=== PATIENT | female | born 1935 | race Caucasian/White ===

== ENCOUNTER → 2021-12-22 18:41 | Outpatient (CLI) | payer OTHER, MEDICARE, BC, SELFPAY ==
[2021-12-22 18:55] LABS: Microscopic, Urine URINE MICROSCOPIC (MICROSCOPIC)
[2021-12-22 19:02] LABS: Appearance,Urine CLEAR (Clear); Bilirubin,Urine Negative (Negative); Blood, Urine 2+ (Negative); Color,Urine YELLOW (Yellow); Glucose,Urine (UA) Negative (Negative); Ketones,Urine Negative (Negative); Leukocyte Esterase,Urine 2+ (Negative); Nitrate,Urine POSITIVE (Negative); Protein,Urine TRACE (Negative); Specific Gravity, Urine >= 1.030 (1.005-1.030); Urobilinogen,Urine 0.2 EU/dl (0.2)
[2021-12-22 19:22] LABS: WBC,Urine TNTC #/hpf (0-3)
[2021-12-22 19:23] LABS: Bacteria,Urine 2+ /lpf; RBC,Urine TNTC #/hpf (0-3)
== END ==
PROVIDERS: Visit Provider Family Medicine
DX: N39.0 Urinary tract infection, site not specified (principal); B96.89 Other specified bacterial agents as the cause of diseases classified elsewhere
CPT/HCPCS: 81001; 87086; 87088; 87186

== ENCOUNTER 2022-02-11 14:26 | Inpatient (IN) | payer OTHER, MEDICARE, BC, SELFPAY ==
[2022-02-11] VITALS (8 sets, daily range): BP systolic 100–122; BP diastolic 60–73; PULSE 70–74; RESP 16–20; TEMP 36.4–36.6; O2SAT 90–97; BMI 19.8; BMI 19.7
--- NOTE | 2022-02-11 14:44 | HMH.EDGENADL ---
ED Disposition Clinical Impression: Pelvic fracture Qualifiers: Encounter type: initial encounter Pelvic bone location: pubis Sublocation of pubis: superior rim Disposition: Admitted As Inpatient Condition on Discharge: Undetermined Referrals: Fransisco Diana [Primary Care Provider] - - Critical Care Critical Care Time: No Attestation: On 02/11/22, the high probability of a clinically significant, sudden or life threatening deterioration of the following system(s) required my full and direct attention, intervention and personal management. The time I documented below is in addition to time spent performing reported procedures but includes the following listed in this critical care notation. Medical Decision Making - Medical Records Medical records reviewed: Yes: I reviewed the patient's medical records. - Desmond Inquiry Pt receiving controlled substance: No Vital Signs: 02/11/22 14:31 02/11/22 15:00 02/11/22 16:00 Temperature 97.8 F Temperature Source Oral Pulse Rate 74 70 Pulse Rate [Right Brachial] 71 Respiratory Rate 18 18 20 Blood Pressure 118/64 122/60 Blood Pressure [Right Arm] 116/61 Blood Pressure Mean [Right Arm] 79 Blood Pressure Source [Right Arm] Automatic Cuff Blood Pressure Position [Right Arm] Sitting 02 Sat by Pulse Oximetry 96 97 97 Oxygen Delivery Method Room Air - Lab Data Lab results reviewed: Yes: I reviewed the patient's lab results. Lab Results 02/11/22 16:53: WBC 8.0, RBC 4.13 L, Hgb 11.9 L, Hct 36.5 L, MCV 88.3, MCH 28.8, MCHC 32.6, RDW 18.1 H, Plt Count 316, MPV 7.8, Neut % (Auto) 81.2 H, Lymph % (Auto) 11.9, [place] % (Auto) 5.6, Eos % (Auto) 0.5, Baso % (Auto) 0.7, Neut # (Auto) 6.5, Lymph # (Auto) 1.0, [place] # (Auto) 0.5, Eos # (Auto) 0.0, Baso # (Auto) 0.1 02/11/22 16:53: PT 10.9, INR 0.96 02/11/22 16:53: Sodium 140, Potassium 4.3, Chloride 108 H, Carbon Dioxide 29, Anion Gap 7.3, BUN 33 H, Creatinine 0.70, Estimated Creat Clear 38, Estimated GFR 80, Est GFR ( Amer) 96, Glucose 84, Calcium 8.5, Total Bilirubin 0.7, AST 34, ALT 30, Alkaline Phosphatase 278 H, Total Protein 6.3, Albumin 3.6, Globulin 2.7, Albumin/Globulin Ratio 1.3 Result diagrams: 02/11/22 16:53 02/11/22 16:53 Orders (Tests/Meds): ED MEDICATIONS Generic Name Dose Route Start Last Admin Trade Name Freq PRN Reason Stop Dose Admin Hydrocodone Bitart/Acetaminophen 1 tab 02/11/22 15:00 02/11/22 18:14 Hydrocodone 10mg/Apap 325mg Tab PO 03/13/22 14:59 1 tab Q4HP PRN Administration Moderate Pain ORDERS Category Date Time Status Covid-19 Nasal PCR ([facility]) Routine Lab 02/11/22 18:33 Ordered UA [Urinalysis and Microscopic] Stat Lab 02/11/22 18:45 Received EKG Request [ECG Request by /Marcia] Stat Y 02/11/22 14:58 Ordered Medical Decision Narrative: Patient is an 86-year-old female with a history of metastatic cancer presenting for chief complaint of right hip pain s/p fall from standing. Differential diagnosis includes, but is not limited to, fracture, dislocation, contusion. On initial exam, patient is hemodynamically stable nontoxic-appearing. She was evaluated with CBC, CMP, coags, CT head, CT C-spine, x-ray of the pelvis, right femur and right knee. Lab work is fairly unremarkable aside from mild anemia, likely baseline. Imaging shows lesions in the cervical spine but this is most likely secondary to metastatic disease. In the absence of acute tenderness on palpation, I have low suspicion for acute fracture. X-ray show mildly displaced fracture of the anterior and lateral superior pubic rami. Orthopedic physician on-call was consulted regarding possibility of operative intervention which patient does not require. Given that she lives alone in assisted living facility I do not believe she will be able to care for herself at home. She was admitted for pain control and PT/OT. General Adult HPI - General Chief complaint: Fall Stated complaint: R-hip pain
--- NOTE | 2022-02-11 14:58 | XR_ITS ---
FINAL REPORT CLINICAL HISTORY: fall, right hip pain FINDINGS: SINGLE VIEW PELVIS: A single view of the pelvis was obtained. There is of the mid left inferior pubic rami and lateral left superior pubic rami. Fracture fragments are mildly displaced. Vizualized joint spaces are normally aligned. Soft tissues are unremarkable. IMPRESSION: Acute, mildly displaced fractures of the left inferior and lateral superior pubic rami Reviewed, Interpreted and Dictated by Wade Perez MD Transcribed by Kary Hadley Authenticated by Wade Perez MD on 02/11/2022 04:41:15 PM [facility]
--- NOTE | 2022-02-11 14:59 | XR_ITS ---
FINAL REPORT CLINICAL HISTORY: right hip pain FINDINGS: AP and lateral views of the left femur were obtained. No acute fracture or dislocation. Femoral head has a normal smooth contour. Soft tissues are unremarkable. IMPRESSION: No acute bony abnormality of the left femur. Reviewed, Interpreted and Dictated by Wade Perez MD Transcribed by Kary Hadley Authenticated by Wade Perez MD on 02/11/2022 04:41:15 PM [facility]
--- NOTE | 2022-02-11 14:59 | XR_ITS ---
FINAL REPORT CLINICAL HISTORY: RLE pain/fall, right knee pain due to fall. FINDINGS: Three views of the right knee were obtained. There is an intramedullary nathan in the distal right femoral diaphysis. There is no acute fracture or dislocation. The joint spaces are intact. There is no soft tissue abnormality. IMPRESSION: No acute fracture of the right knee Reviewed, Interpreted and Dictated by Wade Perez MD Transcribed by Kary Hadley Authenticated by Wade Perez MD on 02/11/2022 04:41:15 PM [facility]
--- NOTE | 2022-02-11 14:59 | CT_ITS ---
FINAL REPORT TECHNIQUE: Axial images were performed through the brain.This study was performed with techniques to keep radiation doses as low as reasonably achievable, (ALARA). Individualized dose reduction techniques using automated exposure control or adjustment of mA and/or kV according to the patient''s size were employed. CLINICAL HISTORY: fall FINDINGS: There is mild atrophy. The ventricles are normal in size for the degree of atrophy. There is no extra-axial fluid or midline shift. There is no evidence of acute hemorrhage or mass. There is mild left maxillary mucosal thickening. Acute osseous abnormality is identified. IMPRESSION: Atrophy. No acute intracranial process. Reviewed, Interpreted and Dictated by Wade Perez MD Transcribed by Kary Hadley Authenticated by Wade Perez MD on 02/11/2022 04:17:18 PM [facility]
--- NOTE | 2022-02-11 14:59 | CT_ITS ---
FINAL REPORT TECHNIQUE: Axial images were obtained from skull base to the thoracic inlet by computed tomography. Coronal and sagittal reconstruction process performed. This study was performed with techniques to keep radiation doses as low as reasonably achievable (ALARA). Individualized dose reduction techniques using automated exposure control or adjustment of mA and/or kV according to the patient''s size were employed. CLINICAL HISTORY: pain FINDINGS: There is no acute fracture. Minimal spondylolisthesis is seen of C4 on C5 . There is moderate disc space narrowing at C5-6. There is a rounded lucency seen on the right of the C7 vertebral body measuring 1.7 cm in greatest dimension best seen on image 67 of series 3. There is a defect in the inferior endplate of C6 likely due to Schmorl's node seen on image 48 of series 1002. There is mild endplate hypertrophy at C5-6 with mild right and moderate left neural foraminal narrowing. IMPRESSION: No acute fracture. Rounded lucency in the right C7 vertebrae of uncertain significance. Recommend pre and post-contrast MRI to exclude mass. Hypertrophic changes of degenerative disc disease most evident on the left at C5-6 with minimal degenerative spondylolisthesis at C4-5. Reviewed, Interpreted and Dictated by Wade Perez MD Transcribed by Kary Hadley Authenticated by Wade Perez MD on 02/11/2022 04:17:19 PM [facility]
--- NOTE | 2022-02-11 16:03 | ECG_ITS ---
APPROVED REPORT Exam: Resting ECG HR:72 bpm ECG Measurements Heart Rate 72 AXES MD 201 P 83 QRSd 94 QRS -20 QT 387 T 40 QTc 411 Conclusion ELECTRONIC ATRIAL PACEMAKER ABNORMAL RHYTHM ECG UNCONFIRMED REPORT Electronically signed by : Dayton Palomares MD 02/14/2022 17:44:34
--- NOTE | 2022-02-11 16:24 | PC.NURSE ---
UPDATED PT ON POC. NO NEW NEEDS
--- NOTE | 2022-02-11 16:34 | PC.NURSE ---
DELGADO Mcdonough and DELGADO Yanez attempted to access pt powerport. Was able to flush port but had no blood return. Decision was made to de-access port at this time. ,life sciences teacher is going to attempt IV access.
[2022-02-11 17:05] LABS: Basophils # 0.1 K/mm3 (0-0.2); Basophils % 0.7 % (0.1-2.0); Eosinophils % 0.5 % (0.1-12.0); Hematocrit 36.5 % (37.0-47.0); Hemoglobin 11.9 g/dL (12.2-16.2); Lymphocytes % 11.9 % (10-50); Mean Corpuscular HGB Conc 32.6 g/dL (31.8-35.4); Mean Corpuscular Hemoglobin 28.8 pg (27.0-31.2); Mean Corpuscular Volume 88.3 fl (81-99); Mean Platelet Volume 7.8 fl (7.4-10.4); Monocytes # 0.5 K/mm3 (0.1-1.0); Monocytes % 5.6 % (1.7-9.3); Neutrophils # 6.5 K/mm3 (1.8-7.8); Neutrophils % 81.2 % (37.0-80.0); Platelet Count 316 K/mm3 (142-424); Red Blood Count 4.13 M/mm3 (4.20-5.40); Red Cell Distribution Width 18.1 % (11.5-17.5)
[2022-02-11 17:10] LABS: Chloride 108 mmol/L (98-107); Potassium 4.3 mmoL/L (3.5-5.1); Sodium 140 mmol/L (136-145)
[2022-02-11 17:12] LABS: Blood Urea Nitrogen 33 mg/dl (7-17); Creatinine Clearance Estimated 38 mL/min (50-200); Estimated Glomerular Filt Rate 80 ml/min (>60); GFR (African American) 96 ML/MIN (>60)
[2022-02-11 17:13] LABS: Alanine Aminotransferase 30 U/L (12-78); Albumin Level 3.6 g/dl (3.5-5.0); Albumin/Globulin Ratio 1.3 (1.1-1.8); Alkaline Phosphatase 278 U/L (38-126); Anion Gap 7.3 mEq/L (5-15); Aspartate Amino Transferase 34 U/L (14-36); Bilirubin,Total 0.7 mg/dl (0.2-1.3); Calcium 8.5 mg/dl (8.4-10.2); Carbon Dioxide 29 mmol/L (22.0-30.0); Globulin 2.7 g/dL (1.3-3.2); Glucose 84 mg/dl (74-100); Total Protein,Serum 6.3 g/dl (6.3-8.2)
[2022-02-11 17:14] LABS: INR 0.96 (0.9-1.1); Prothrombin Time 10.9 seconds (10.1-12.5)
--- NOTE | 2022-02-11 18:30 | PC.NURSE ---
Staff went by room and checked on patient and family member
[2022-02-11 19:00] LABS: Microscopic, Urine URINE MICROSCOPIC (MICROSCOPIC)
--- NOTE | 2022-02-11 19:09 | PC.NURSE ---
Ortho paged for ED doctor
--- NOTE | 2022-02-11 19:16 | PC.NURSE ---
Service doctor, Dr. Bradly fraga for ED doctor
[2022-02-11 19:17] LABS: Appearance,Urine CLEAR (Clear); Bilirubin,Urine Negative (Negative); Blood, Urine Negative (Negative); Color,Urine YELLOW (Yellow); Glucose,Urine (UA) Negative (Negative); Ketones,Urine Negative (Negative); Leukocyte Esterase,Urine Negative (Negative); Nitrate,Urine Negative (Negative); Protein,Urine Negative (Negative); Specific Gravity, Urine 1.025 (1.005-1.030); Urobilinogen,Urine 0.2 EU/dl (0.2)
[2022-02-11 19:32] LABS: Coronavirus 19, PCR Not Detected (NotDetected); Influenza A, PCR Not Detected (NotDetected); Influenza B, PCR Not Detected (NotDetected)
[2022-02-11 20:02] LABS: Bacteria,Urine Trace /lpf; RBC,Urine Occasional #/hpf (0-3); Squamous Epithelial Cell,Urine Occasional #/hpf (0-5)
--- NOTE | 2022-02-11 20:59 | PC.NURSE ---
patient up to floor via stretcher @ this time.
[2022-02-12 04:00] VITALS: BP 126/66; PULSE 66; RESP 17; TEMP 36.6; O2SAT 98
--- NOTE | 2022-02-12 07:19 | HMH.PHAVTE ---
[facility] Pharmacy VTE Monitoring - Patient Demographics Admission date: 02/12/22 Report Date: 02/12/22 Time: 07:20 Allergies/Adverse Reactions: Patient Allergies Sulfa (Sulfonamide Antibiotics) [SULFA (SULFONAMIDE ANTIBIOTICS)] Allergy (Intermediate, Verified 11/06/18 18:16) erythromycin base Allergy (Verified 11/06/18 18:16) Height: 1.73 m Weight: 58.967 kg Patient Problems: Current Active Problems Pelvic fracture (Acute) - VTE Risk Labs: VTE Related Lab Results Hgb 11.9 g/dL (12.2-16.2) L 02/11/22 16:53 Hct 36.5 % (37.0-47.0) L 02/11/22 16:53 Plt Count 316 K/mm3 (142-424) 02/11/22 16:53 PT 10.9 seconds (10.1-12.5) 02/11/22 16:53 INR 0.96 (0.9-1.1) 02/11/22 16:53 BUN 33 mg/dl (7-17) H 02/11/22 16:53 Creatinine 0.70 mg/dl (0.52-1.04) 02/11/22 16:53 Estimated Creat Clear 38 mL/min (50-200) 02/11/22 16:53 Clinical Trial Participant: No - Prophylaxis VTE Prophylaxis Ordered?: Yes Types of VTE Prophylaxis: TEDS Knee High
[2022-02-12 08:00] VITALS: BP 105/60; PULSE 73; RESP 17; TEMP 36.8; O2SAT 94
--- NOTE | 2022-02-12 09:22 | HMH.PHAINT ---
Home medication list has been verified using the patient's MAR from the facility she was staying at.
--- NOTE | 2022-02-12 09:24 | SW/DCPLANNER ---
Addendum entered by [facility] 02/13/22 12:37: Mariella has stated that [facility] will be here at 2PM to transport this patient. Addendum entered by [facility] 02/13/22 09:20: Per Mariella this patient is good to return to [facility] unit today. Dr Cabrales has stated that patient is medically stable for discharge today. Per Mariella patient will not require an additional COVID swab prior to returning. Addendum entered by [facility] 02/12/22 14:44: Updated patient information has been faxed to Rosalia rockwell/ [facility] and Mariella rockwell/ [facility]: patient should be a candidate to return to [facility] at [facility]/ Hospice care and outpatient therapy. I will continue to follow up with Sol. Original Note: This patient currently resides at [facility] () and is under Hospice Care. Ruddy rockwell/ [facility] Jer[facility] Aguayo has stated this is a related stay. I will continue to follow up with MD nettie, [facility] and [facility] during patient's stay.
--- NOTE | 2022-02-12 09:37 | HMH.HP ---
*Admission Date: 02/12/22 <JaneLana - 02/12/22 10:01> *Chief complaint: Fall with fracture of pelvis <Lana Lara 02/12/22 10:01> *History of present illness: Ms. Ramon is an 86-year-old female resident of assisted living at [facility] with a history of metastatic breast cancer, pacemaker for bradycardia tach syndrome, osteoarthritis, hypertension, GERD, wound of right lower extremity, depression, and is currently under the assistance of hospice care who when walking around her bed tripped and fell landing on her buttocks. She states she did hit her head on some object but has no head discomfort. With evaluation in the emergency room x-ray of the pelvis showed an acute mildly displaced fracture of the left inferior and lateral superior pubic Rami. CT of the spine showed no acute fracture. Left femur x-ray revealed no acute bony abnormalities. CT of the head revealed no acute intracranial process. Knee x-rays were also negative for fracture. She was given hydrocodone APAP in the emergency room. She was admitted for pain control and PT OT evaluation. This a.m. patient states she is comfortable. She is sitting up in the bed eating her breakfast. She states she did sleep some last night. <Lana Lara 02/12/22 10:01> [facility] History Medical History: Reports:: Cancer (breast), Depression, Gastroesophageal Reflux Disease(GERD), Hypertension, Internal Pacemaker Denies:: Diabetes Mellitus Type 1, Diabetes Mellitus Type 2, MRSA <Lana Lara 02/12/22 10:01> *Have you ever received a pneumonia vaccine?: Yes <Lana Lara 02/12/22 10:01> *Have you received a flu vaccine this season?: Yes <Lana Lara 02/12/22 10:01> Laterality Cases: Left: Mastectomy, Bilateral: Cataract <Lana Lara 02/12/22 10:01> Other Surgeries: Yes: Pacemaker <Lana Lara 02/12/22 10:01> Amputation: No <Lana Lara 02/12/22 10:01> Fractures: Yes <Lana Lara 02/12/22 10:01> - *Social History Last grade of school completed: High school graduate <Lana Lara 02/12/22 10:01> Smoking Status: Unknown if ever smoked <Lana Lara 02/12/22 10:01> Alcohol Intake: never <LaraLana 02/12/22 10:01> *Occupational Status:: retired <LaraLana 02/12/22 10:01> Housing: custodial <LaraLana 02/12/22 10:01> Household Members: other <LaraLana 02/12/22 10:01> *Travel in the last 8 weeks: None <LaraLana 02/12/22 10:01> Family Hx:: No significant family history <LaraLana 02/12/22 10:01> Review of Systems - Constitutional Denies fever(s) <LaraLana 02/12/22 10:01> - Eyes Denies change in vision <LaraLana 02/12/22 10:01> - ENT Denies dizziness, Denies ear pain, Denies sore throat <JaneLana 02/12/22 10:01> - *Cardiovascular Reports shortness of breath, Denies chest pain <LaraLana 02/12/22 10:01> - *Respiratory Reports shortness of breath, Denies chest congestion, Denies cough <LaraLana 02/12/22 10:01> - *Gastrointestinal Reports constipation, Denies abdominal pain, Denies loose stools, Denies nausea, Denies vomiting <LaraLana 02/12/22 10:01> - *Genitourinary Denies difficulty urinating <Lara,Lana 02/12/22 10:01> - *Musculoskeletal Reports muscle weakness, Denies joint pain <LaraLana 02/12/22 10:01> - *Neurologic Reports abnormal walking (Unsteady on her feet and usually uses a walker with assistance), Denies confusion, Denies dizziness, Denies localized weakness, Denies headache(s), Denies tingling/numbness/burning sensations, Denies fainting <JaneLana 02/12/22 10:01> Meds Home Medications Medication Instructions Recorded Confirmed Type Bisacodyl [Bisacodyl 10mg Supp] 10 mg RC DAILYP PRN 02/11/22 02/11/22 History Citalopram Hydrobromide 10 mg PO DAILY 02/11/22 02/11/22 History [Citalopram 10mg Tablet] Furosemide [Lasix 20mg tab] 20 mg PO DAILY 02/11/22 02/11/22 History Gabapen
--- NOTE | 2022-02-12 14:18 | HMH.PTEV ---
Physical Therapy Evaluation Rehab PT IP Evaluation Start: 02/12/22 11:42 Freq: .once Status: Active Protocol: Document 02/12/22 13:30 IFRAH (Rec: 02/12/22 14:18 IFRAH [id number]) Subjective/History History History 86 y/o femal admitted to [facility] from SNF assisted living side. Pt was using RW as assistive device in ns home, and was receiving hospice care. Subjective Subjective Pt has c/o pain in B lower legs R>L due to edema and cellulitis, open blisters on RLE Rehab PT IP Eval Objective Appearance Patient Behavior Appropriate,Cooperative Patient Orientation Place,Name,Birthday,Year Difficulty following instructions none Speech Pattern Appropriate Ambulation Patient Able to Ambulate Yes Ambulation Observation IP General Gait Pattern Observation Shuffling Step,Decrease Stride Lngth (R),Decrease Stride Lngth (L) Ambulation Distance (feet) 30 Ambulation Assistive Device Rolling Walker Ambulation Ability Contact Guard/Hand Hold Balance Ability to Arise Able, uses arms to help Sitting Balance Steady, safe Standing Balance Steady, wide stance Dynamic Sitting Balance Ability Good Dynamic Standing Balance Ability Fair Transfers Bed Transfer Ability Supervision/Stand by Chair Transfer Ability Supervision/Stand by Sit to Stand Bed Transfer Ability Contact Guard/Hand Hold Sit to Stand Chair Transfer Ability Contact Guard/Hand Hold ROM LLE PT ROM Status ABN Abnormal ROM Comment limited in hip flex RLE PT ROM Status ABN Abnormal ROM Comment limited in hip flex Rehab PT IP prob,goals,plan Problems Date of Evaluation: 02/12/22 PT IP Problems Transfers,Gait,Self care, Safety Rehab Potential Rehab Potential Good Equipment Needs Assistive Devices Rolling / Wheeled Walker Plan PT Intervention Plan Gait,Balance,Self care,Safety, Therapeutic Exercise PT Plan Frequency BID Duration LOS Discharge Goals Bed Transfer Ability Supervision/Stand by Sit to Stand Chair Transfer Ability Supervision/Stand by,Contact Guard/Hand Hold Ambulation Assistive Device Rolling Walker Ambulation Distance (feet) 30 Discharge Plan PT Discharge Plan Pt will benefit from skilled
--- NOTE | 2022-02-12 14:54 | HMH.OTEV ---
OT Inpatient Evaluation Rehab OT IP Evaluation Start: 02/12/22 11:43 Freq: ONCE Status: Complete Protocol: Document 02/12/22 14:47 [facility] (Rec: 02/12/22 14:53 [facility] [id number]) Rehab OT IP Assessment Subjective History Pt was oriented x 3 on arrival . Pt agreeable to engage in therapy session. Pt was admitted via ED on 02/11/22 due to a fall and Pelvic FX. Prior to being in the hosptial , pt lived at [facility] living area. Pt claims she was independent with dressing, feeding, and bathing. Pt was dependent upon employees for completion of IADLs. Pt did use a rolling walker for wheelchair when needed. The following information was copied from history and physical report: Ms. Ramon is an 86-year-old female resident of assisted living at [place] with a history of metastatic breast cancer, pacemaker for bradycardia tach syndrome, osteoarthritis, hypertension, GERD, wound of right lower extremity, depression, and is currently under the assistance of hospice care who when walking around her bed tripped and fell landing on her buttocks. She states she did hit her head on some object but has no head discomfort. With evaluation in the emergency room x-ray of the pelvis showed an acute mildly displaced fracture of the left inferior and lateral superior pubic Rami. CT of the spine showed no acute fracture. Left femur x-ray revealed no acute bony abnormalities. CT of the head revealed no acute intracranial process. Knee x- rays were also negative for fracture. She was given
[2022-02-12 16:00] VITALS: BP 136/64; PULSE 78; RESP 19; TEMP 36.9; O2SAT 96
[2022-02-12 20:00] VITALS: BP 104/62; PULSE 71; RESP 18; TEMP 36.4; O2SAT 93
[2022-02-13 04:00] VITALS: BP 119/64; PULSE 73; RESP 16; TEMP 36.6; O2SAT 90
[2022-02-13 06:16] VITALS: BMI 19.7
[2022-02-13 08:00] VITALS: BP 112/54; PULSE 73; RESP 18; TEMP 36.4; O2SAT 94
--- NOTE | 2022-02-13 08:29 | HMH.ACPN2 ---
<Lana Lara - Last Filed: 02/14/22 06:25> Internal Medicine - PN: Subj *Date: 02/14/22 *Time: 06:25 Interval history: Patient states she did sleep some last night. She is eating without problems. She has been up with physical therapy and feels she did well. Please see physical therapy note. Exam Vital signs and Labs for Last 24 Hours: Temp Pulse Resp BP Pulse Ox 97.9 F 73 16 119/64 90 L 02/13/22 04:00 02/13/22 04:00 02/13/22 04:00 02/13/22 04:00 02/13/22 04:00 I & O for Last 24 hours: Intake & Output 02/10/22 02/11/22 02/12/22 02/13/22 11:59 11:59 11:59 11:59 Intake Total 240 / 240 Output Total 0 / 0 Balance 0 / 0 240 / 240 Weight 130 lb 130 lb - Constitutional no acute distress Comments: Sitting up in the bed completing her breakfast. She appears comfortable. - *Routine Respiratory Exam Present: diminished air movement (Posteriorly) - *Routine Cardiovascular Exam Present: RRR - *Routine Abdominal Exam Present: soft, normoactive bowel sounds. Absent: tenderness - *Routine Extremities Exam Present: edema Comments: Right leg reveals erythema from the knee down with tenderness to the whole lower leg and right heel. There are a few discolored areas over the outer lateral lower leg. There has been some drainage. - *Routine Neurological Exam Present: alert, oriented X3 Assessment and Plan (1) Pelvic fracture Status: Acute Qualifiers: Encounter type: initial encounter Pelvic bone location: pubis Sublocation of pubis: superior rim Category: Medical Code(s): S32.9XXA - Fracture of unspecified parts of lumbosacral spine and pelvis, initial encounter for closed fracture (2) Metastatic breast cancer Status: Acute Category: Medical Code(s): C50.919 - Malignant neoplasm of unspecified site of unspecified female breast (3) Depression Status: Acute Category: Medical Code(s): F32.A - Depression, unspecified (4) Hypertension Status: Acute Category: Medical Code(s): I10 - Essential (primary) hypertension (5) Cancer associated pain Status: Acute Category: Medical Code(s): G89.3 - Neoplasm related pain (acute) (chronic) (6) GERD (gastroesophageal reflux disease) Status: Acute Category: Medical Code(s): K21.9 - Gastro-esophageal reflux disease without esophagitis (7) Wound of right lower extremity Status: Acute Category: Medical Code(s): S81.801A - Unspecified open wound, right lower leg, initial encounter - Assessment and plan all Dx Assessment and Plan for all problems:: Will to restart antibiotic. Apparently wound care physician did telehealth with pictures at [place] and started her on Augmentin. <Julio Cabrales - Last Filed: 02/19/22 08:51> Internal Medicine - PN: Subj *Date: 02/19/22 *Time: 08:51 Exam Vital signs and Labs for Last 24 Hours: Temp Pulse Resp BP Pulse Ox 97.5 F L 73 18 112/54 L 94 L 02/13/22 08:00 02/13/22 08:00 02/13/22 08:00 02/13/22 08:00 02/13/22 08:00 Assessment and Plan (1) Pelvic fracture Status: Acute Qualifiers: Encounter type: initial encounter Pelvic bone location: pubis Sublocation of pubis: superior rim Category: Medical Code(s): S32.9XXA - Fracture of unspecified parts of lumbosacral spine and pelvis, initial encounter for closed fracture (2) Metastatic breast cancer Status: Acute Category: Medical Code(s): C50.919 - Malignant neoplasm of unspecified site of unspecified female breast (3) Depression Status: Acute Category: Medical Code(s): F32.A - Depression, unspecified (4) Hypertension Status: Acute Category: Medical Code(s): I10 - Essential (primary) hypertension (5) Cancer associated pain Status: Acute Category: Medical Code(s): G89.3 - Neoplasm related pain (acute) (chronic) (6) GERD (gastroesophageal reflux disease) Status: Acute Category: Medical Code(s): K21.9 - Gastr
--- NOTE | 2022-02-13 09:32 | HMH.DCSUM ---
General - General Admission date:: 02/11/22 <Julio Cabrales - 02/13/22 12:54> 02/11/22 <Lana Lara - 02/13/22 09:42> Discharge date: 02/13/22 <Lana Lara - 02/13/22 09:42> HPI HPI: Ms. Ramon is an 86-year-old female resident of assisted living at [facility] with a history of metastatic breast cancer, pacemaker for bradycardia tach syndrome, osteoarthritis, hypertension, GERD, wound of right lower extremity, depression, and currently under the assistance of hospice care who when walking around her bed tripped and fell landing on her buttocks. She stated she did hit her head on some object but has no head discomfort. With evaluation in the emergency room x-ray of the pelvis showed an acute mildly displaced fracture of the left inferior and lateral superior pubic Rami. CT of the spine showed no acute fracture. Left femur x-ray revealed no acute bony abnormalities. CT of the head revealed no acute intracranial process. Knee x-rays were also negative for fracture. She was given hydrocodone APAP in the emergency room. She was admitted for pain control and PT OT evaluation. The following a.m. patient stated she was comfortable. She was sitting up in the bed eating her breakfast. She stated she slept some during the night. <Lana Lara - 02/13/22 09:42> Hospital Course Hospital Course: Pain was controlled after admission. She was seen by physical therapy and Occupational Therapy who felt she needed additional rehab in order to be safe with ambulation. She states she was able to walk around the bed with a walker with assistance. She continues with a wound on the right lower leg. She will need to be restarted back on her Augmentin which was prescribed by the wound care physician prior to her fall. She will need to have daily dressing changes on the right lower extremity as well as protection of the heel. She will continue with hospice services at [facility]. On 02/23/2022 patient states she is doing well. She is eating well. She is ready for discharge back to [facility]. She will continue with meds as per medication reconciliation sheet. She will need PT and OT for rehab. To continue with dressing changes daily on the right lower extremity. Also to continue with her pain management. <Lana Lara - 02/13/22 09:42> Objective Vital signs: Temp Pulse Resp BP Pulse Ox 97.5 F L 73 18 112/54 L 94 L 02/13/22 08:00 02/13/22 08:00 02/13/22 08:00 02/13/22 08:00 02/13/22 08:00 <Julio Cabrales - 02/13/22 12:54> Temp Pulse Resp BP Pulse Ox 97.5 F L 73 18 112/54 L 94 L 02/13/22 08:00 02/13/22 08:00 02/13/22 08:00 02/13/22 08:00 02/13/22 08:00 <Lana Lara - 02/13/22 09:42> Narrative: Exam Vital signs and Labs for Last 24 Hours: Temp Pulse Resp BP Pulse Ox 97.9 F 73 16 119/64 90 L 02/13/22 04:00 02/13/22 04:00 02/13/22 04:00 02/13/22 04:00 02/13/22 04:00 I & O for Last 24 hours: Intake & Output 02/10/22 02/11/22 02/12/22 02/13/22 11:59 11:59 11:59 11:59 Intake Total 240 / 240 Output Total 0 / 0 Balance 0 / 0 240 / 240 Weight 130 lb 130 lb - Constitutional no acute distress Comments: Sitting up in the bed completing her breakfast. She appears comfortable. - *Routine Respiratory Exam Present: diminished air movement (Posteriorly) - *Routine Cardiovascular Exam Present: RRR - *Routine Abdominal Exam Present: soft, normoactive bowel sounds. Absent: tenderness - *Routine Extremities Exam Present: edema Comments: Right leg reveals erythema from the knee down with tenderness to the whole lower leg and right heel. There are a few discolored areas over the outer lateral lower leg. There has been some drainage. - *Routine Neurological Exam Present: alert, oriented X3 <Lana Lara - 02/13/22 09:42> Results Completed studies during hospitalization [Text1]: 02/11/22 16:53: WB
--- NOTE | 2022-02-13 12:33 | PC.NURSE ---
Ranjeet segura contacted, report given to Ankita.
--- NOTE | 2022-02-13 12:43 | PC.WOUNDNOTE ---
present on admission, no changes since admission
[2022-02-13 13:35] VITALS: BMI 19.3
--- NOTE | 2022-02-14 14:18 | CARE MANAGER ---
Contacted patient's nurse, Ankita. States patient is doing very well and getting around well. Deny any questions or concerns. DELGADO Campos
== END 2022-02-13 14:50 | DRG 536 ==
LOC: ER 19:21 → 2ND 19:40
PROVIDERS: Admitting Provider Family Medicine; Emergency Provider Emergency Medicine; PCP Pediatrics; Visit Provider Family Medicine
DX: S32.511A Fracture of superior rim of right pubis, initial encounter for closed fracture (principal); C79.9 Secondary malignant neoplasm of unspecified site; C50.919 Malignant neoplasm of unspecified site of unspecified female breast; F32.A Depression, unspecified; I10 Essential (primary) hypertension; K21.9 Gastro-esophageal reflux disease without esophagitis; G89.3 Neoplasm related pain (acute) (chronic); Z95.0 Presence of cardiac pacemaker; M19.90 Unspecified osteoarthritis, unspecified site; Z51.5 Encounter for palliative care; W01.0XXA Fall on same level from slipping, tripping and stumbling without subsequent striking against object, initial encounter; Z20.822 Contact with and (suspected) exposure to COVID-19
CPT/HCPCS: 70450; 72125; 72170; 73552; 73562; 80053; 81001; 85025; 85610; 93005; 97162; 97166; 97530; 99285; C9803; J1642; U0003; U0005

== ENCOUNTER 2022-02-22 22:44 | Observation (INO) | payer OTHER, MEDICARE, BC, SELFPAY ==
[2022-02-22 22:45] VITALS: BP 126/77; PULSE 76; RESP 17; TEMP 36.8; O2SAT 98; BMI 23.9
[2022-02-22 23:02] LABS: Microscopic, Urine URINE MICROSCOPIC (MICROSCOPIC)
[2022-02-22 23:04] LABS: Appearance,Urine CLEAR (Clear); Bilirubin,Urine Negative (Negative); Blood, Urine Negative (Negative); Color,Urine YELLOW (Yellow); Glucose,Urine (UA) Negative (Negative); Ketones,Urine Negative (Negative); Leukocyte Esterase,Urine Negative (Negative); Nitrate,Urine Negative (Negative); PH,Urine 5.5 (5.0-8.5); Protein,Urine Negative (Negative); Specific Gravity, Urine 1.025 (1.005-1.030); Urobilinogen,Urine 0.2 EU/dl (0.2)
[2022-02-22 23:16] LABS: Basophils # 0.1 K/mm3 (0-0.2); Basophils % 0.8 % (0.1-2.0); Eosinophils % 0.2 % (0.1-12.0); Hematocrit 34.7 % (37.0-47.0); Hemoglobin 11.3 g/dL (12.2-16.2); Lymphocytes # 1.1 K/mm3 (0.7-4.5); Lymphocytes % 11.9 % (10-50); Mean Corpuscular HGB Conc 32.6 g/dL (31.8-35.4); Mean Corpuscular Hemoglobin 28.5 pg (27.0-31.2); Mean Corpuscular Volume 87.4 fl (81-99); Mean Platelet Volume 8.7 fl (7.4-10.4); Monocytes # 0.4 K/mm3 (0.1-1.0); Monocytes % 4.3 % (1.7-9.3); Neutrophils # 7.7 K/mm3 (1.8-7.8); Neutrophils % 82.8 % (37.0-80.0); Platelet Count 279 K/mm3 (142-424); Red Blood Count 3.96 M/mm3 (4.20-5.40); Red Cell Distribution Width 18.3 % (11.5-17.5); White Blood Count 9.3 K/mm3 (4.8-10.8)
[2022-02-22 23:26] LABS: Alanine Aminotransferase 30 U/L (12-78); Albumin Level 3.6 g/dl (3.5-5.0); Albumin/Globulin Ratio 1.4 (1.1-1.8); Alkaline Phosphatase 236 U/L (38-126); Anion Gap 10.9 mEq/L (5-15); Aspartate Amino Transferase 32 U/L (14-36); Bilirubin,Total 0.6 mg/dl (0.2-1.3); Blood Urea Nitrogen 44 mg/dl (7-17); Calcium 8.7 mg/dl (8.4-10.2); Carbon Dioxide 25 mmol/L (22.0-30.0); Chloride 107 mmol/L (98-107); Creatinine Clearance Estimated 40 mL/min (50-200); Estimated Glomerular Filt Rate 95 ml/min (>60); GFR (African American) 115 ML/MIN (>60); Globulin 2.5 g/dL (1.3-3.2); Glucose 114 mg/dl (74-100); Potassium 3.9 mmoL/L (3.5-5.1); Sodium 139 mmol/L (136-145); Total Protein,Serum 6.1 g/dl (6.3-8.2)
[2022-02-22 23:31] LABS: C-Reactive Protein 31.7 mg/L (0-4)
[2022-02-22 23:41] LABS: Erythrocyte Sedimentation Rate 32 mm/hr (0-30)
[2022-02-22 23:45] LABS: Procalcitonin 0.075 ng/mL (0.0-2.0)
--- NOTE | 2022-02-22 23:49 | HMH.EDAMS ---
ED Disposition Clinical Impression: Acute delirium Disposition: Admitted as Observation Condition on Discharge: Good - Critical Care Critical Care Time: No Attestation: On 02/22/22, the high probability of a clinically significant, sudden or life threatening deterioration of the following system(s) required my full and direct attention, intervention and personal management. The time I documented below is in addition to time spent performing reported procedures but includes the following listed in this critical care notation. Medical Decision Making - Medical Records Medical records reviewed: Yes: I reviewed the patient's medical records. - Desmond Inquiry Pt receiving controlled substance: No Vital Signs: 02/22/22 22:45 02/23/22 00:00 02/23/22 01:17 Temperature 98.3 F 98.3 F Temperature Source Oral Pulse Rate 76 72 Pulse Rate [Left Radial] 76 Respiratory Rate 17 16 17 Blood Pressure 118/62 111/62 Blood Pressure [Right Arm] 126/77 Blood Pressure Mean 80 87 Blood Pressure Mean [Right Arm] 93 Blood Pressure Source Automatic Cuff Automatic Cuff Blood Pressure Source [Right Arm] Automatic Cuff Blood Pressure Position Right Lateral Blood Pressure Position [Right Arm] Sitting 02 Sat by Pulse Oximetry 98 Oxygen Delivery Method Room Air - Lab Data Lab results reviewed: Yes: I reviewed the patient's lab results. Lab Results 02/22/22 22:58: Urine Color Yellow, Urine Appearance Clear, Urine pH 5.5, Ur Specific [place] 1.025, Urine Protein Negative, Urine Glucose (UA) Negative, Urine Ketones Negative, Urine Blood Negative, Urine Nitrate Negative, Urine Bilirubin Negative, Urine Urobilinogen 0.2, Ur Leukocyte Esterase Negative, Urine WBC 10-20, Ur Squamous Epith Cells 3-5 02/22/22 23:04: C-Reactive Protein 31.7 H 02/22/22 23:04: WBC 9.3, RBC 3.96 L, Hgb 11.3 L, Hct 34.7 L, MCV 87.4, MCH 28.5, MCHC 32.6, RDW 18.3 H, Plt Count 279, MPV 8.7, Neut % (Auto) 82.8 H, Lymph % (Auto) 11.9, [place] % (Auto) 4.3, Eos % (Auto) 0.2, Baso % (Auto) 0.8, Neut # (Auto) 7.7, Lymph # (Auto) 1.1, [place] # (Auto) 0.4, Eos # (Auto) 0.0, Baso # (Auto) 0.1, ESR 32 H 02/22/22 23:04: Sodium 139, Potassium 3.9, Chloride 107, Carbon Dioxide 25, Anion Gap 10.9, BUN 44 H, Creatinine 0.60, Estimated Creat Clear 40, Estimated GFR 95, Est GFR ( Amer) 115, Glucose 114 H, Calcium 8.7, Total Bilirubin 0.6, AST 32, ALT 30, Alkaline Phosphatase 236 H, Total Protein 6.1 L, Albumin 3.6, Globulin 2.5, Albumin/Globulin Ratio 1.4, Procalcitonin 0.075 02/22/22 23:04: Troponin I < 0.01 02/23/22 00:22: Lactate 1.5 Result diagrams: 02/22/22 23:04 02/22/22 23:04 Orders (Tests/Meds): ORDERS Category Date Time Status Ammonia Stat Lab 02/23/22 00:22 Received Troponin I Q3H Lab 02/23/22 03:15 Ordered Troponin I Q3H Lab 02/23/22 06:15 Ordered Blood Culture Stat Micro 02/23/22 00:22 Received Urine Culture Stat Micro 02/22/22 22:58 Received - CT Data CT Scan: Head Time Received: 01:[address] Reviewed: Yes: I have viewed the radiologist's interpretation Preliminary Findings: Abnormal (see report ) - Physician Consults Physician Consulted: lopez Reason -: Admission Medical Decision Narrative: pt with confusion at [facility] w/o acute trauma or fever - hx of breast cancer and on pain meds at this time Altered Mental Status HPI - General Chief Complaint: Altered Mental Status Stated Complaint: AMS Time Seen by Provider: 02/22/22 23:49 Mode of Arrival: EMS Source of Information: Patient, Relative, EMS, Medical Record Limitations: No Limitations Description of Symptoms (Recalled from ER Triage Doc. by RN): SENT FROM ASSISTED FOR BEING COMBATIVE. PT WITH HX OF METASTATIC BREAST CANCER. - History of Present Illness HPI narrative: pt sent from [facility] with hx of confusion and was combative with staff at [facility] - has hx of breast cancer and has recent fall - no trauma - but had fall about 10 days ago - has pain meds and seen roberto
[2022-02-23] VITALS (11 sets, daily range): BP systolic 94–138; BP diastolic 49–73; PULSE 70–87; RESP 15–17; TEMP 36.6–36.8; O2SAT 90–96; BMI 21.7
--- NOTE | 2022-02-23 00:07 | PC.NURSE ---
Dr. Seaman speaking to Dr. Cabrales at this time
--- NOTE | 2022-02-23 00:10 | PC.NURSE ---
radha on phone Dr marroquin @ this time
--- NOTE | 2022-02-23 00:14 | CT_ITS ---
PROCEDURE INFORMATION: Exam: CT Head Without Contrast Exam date and time: 02/23/2022 12:25 AM Age: 86 years old Clinical indication: Altered mental status/memory loss; Confusion or disorientation; Additional info: AMS TECHNIQUE: Imaging protocol: Computed tomography of the head without contrast. Radiation optimization: All CT scans at this facility use at least one of these dose optimization techniques: automated exposure control; mA and/or kV adjustment per patient size (includes targeted exams where dose is matched to clinical indication); or iterative reconstruction. COMPARISON: CT HEAD/BRAIN WO CON 02/11/2022 3:11 PM FINDINGS: Brain: Moderate atrophy. No intracranial hemorrhage. No mass. Few scattered foci of decreased attenuation within periventricular/subcortical white matter. No definite edema. Cerebral ventricles: No hydrocephalus. Paranasal sinuses: No acute sinusitis. Mastoid air cells: No significant effusion. Orbital cavities: Unremarkable as visualized. Bones/joints: No acute fracture. Soft tissues: Unremarkable. IMPRESSION: Probable chronic microvascular ischemic changes. If symptoms persist, consider MRI.
[2022-02-23 00:47] LABS: Lactic Acid 1.5 mmol/L (0.7-2.1)
[2022-02-23 01:01] LABS: Troponin I < 0.01 ng/ml (0.00-0.034)
--- NOTE | 2022-02-23 01:14 | PC.NURSE ---
pt sleeping at this time
--- NOTE | 2022-02-23 01:24 | PC.NURSE ---
PT REPOSITIONED FOR COMFORT AND LIGHTS DIMMED PER PATIENT REQUEST. ADDITIONAL BLANKETS PROVIDED.
--- NOTE | 2022-02-23 01:34 | PC.NURSE ---
Pt moved to hospital bed, bed alarm on, and call light within reach.
[2022-02-23 02:02] LABS: Ammonia < 9 umol/L (9-30)
--- NOTE | 2022-02-23 02:37 | PC.NURSE ---
pt beatriz boarding in er. pt transferred to regular hospital bed. bed alarm activated and call light within reach
--- NOTE | 2022-02-23 03:30 | PC.NURSE ---
pt resting quietly. bed alarm activated call light within reach
--- NOTE | 2022-02-23 04:38 | PC.NURSE ---
AM labs and vital signs obtained @ this time. pt voiced no c/o bed alarm activated, call light within reach
[2022-02-23 04:45] LABS: Basophils % 0.6 % (0.1-2.0); Eosinophils % 0.5 % (0.1-12.0); Hematocrit 30.5 % (37.0-47.0); Lymphocytes % 13.5 % (10-50); Mean Corpuscular HGB Conc 32.6 g/dL (31.8-35.4); Mean Corpuscular Hemoglobin 28.7 pg (27.0-31.2); Monocytes # 0.3 K/mm3 (0.1-1.0); Monocytes % 3.9 % (1.7-9.3); Neutrophils # 6.2 K/mm3 (1.8-7.8); Neutrophils % 81.5 % (37.0-80.0); Platelet Count 239 K/mm3 (142-424); Red Blood Count 3.46 M/mm3 (4.20-5.40); Red Cell Distribution Width 18.4 % (11.5-17.5); White Blood Count 7.6 K/mm3 (4.8-10.8)
[2022-02-23 04:57] LABS: Anion Gap 9.5 mEq/L (5-15); Blood Urea Nitrogen 37 mg/dl (7-17); Calcium 8.4 mg/dl (8.4-10.2); Carbon Dioxide 25 mmol/L (22.0-30.0); Chloride 107 mmol/L (98-107); Creatinine Clearance Estimated 40 mL/min (50-200); Estimated Glomerular Filt Rate 117 ml/min (>60); GFR (African American) 142 ML/MIN (>60); Magnesium 2.1 mg/dl (1.6-2.3); Potassium 3.5 mmoL/L (3.5-5.1); Sodium 138 mmol/L (136-145)
[2022-02-23 05:08] LABS: Glucose 193 mg/dl (74-100)
--- NOTE | 2022-02-23 05:47 | PC.NURSE ---
Pt brief changed and repositioned for comfort. Bed alarm on and call light within reach.
[2022-02-23 05:56] LABS: Coronavirus 19, PCR Not Detected (NotDetected); Influenza A, PCR Not Detected (NotDetected); Influenza B, PCR Not Detected (NotDetected)
--- NOTE | 2022-02-23 08:30 | PC.NURSE ---
PT CONFUSED YELLING AT STAFF. ATTEMPTING TO CLIMB OUT OF BED.
--- NOTE | 2022-02-23 08:35 | PC.NURSE ---
SITTER AT BEDSIDE
--- NOTE | 2022-02-23 10:20 | PC.NURSE ---
1017 detailed report given to tejinder lundberg rn.
--- NOTE | 2022-02-23 10:40 | PC.NURSE ---
Pt arrived to the floor at this time
--- NOTE | 2022-02-23 14:08 | HMH.HP ---
*Admission Date: 02/23/22 *Chief complaint: confusion *History of present illness: Ms. Ramon is an 86-year-old white female with a history of metastatic breast cancer who is currently a resident of the assisted living facility at [facility] and is under the care of hospice. She was in her usual state of health last evening when she became agitated and verbally and physically aggressive with the staff at [facility] to the point that they could not manage her care. They called her family who also was unable to get her to calm down. She was therefore transported to the ER for further evaluation. Laboratory work-up in the ER was noncontributory. Her urinalysis showed 10-20 white cells and culture is pending. She had a repeat CT scan of the head to follow-up on a fall from 10 days ago. There is no indication of subdural hematoma. She was boarded in the ER last evening because no beds were available in the hospital. She rested quietly through the night but this morning she became agitated again, trying to get out of bed and talking incoherently. She eventually required a dose of Ativan to get her to calm down. She is now admitted to the floor and is much more calm. She is cooperating with the staff and eating some lunch at present. She is still confused and oriented to name only. [facility] History Medical History: Reports:: Cancer (metastatic breast cancer), Depression, Gastroesophageal Reflux Disease(GERD), Hypertension, Internal Pacemaker Denies:: Coronary Artery Disease, Diabetes Mellitus Type 1, Diabetes Mellitus Type 2, MRSA *Have you ever received a pneumonia vaccine?: Yes *Have you received a flu vaccine this season?: Yes Laterality Cases: Left: Mastectomy Other Surgeries: Yes: Pacemaker Amputation: No Fractures: Yes - *Social History Smoking Status: Unknown if ever smoked Alcohol Intake: never *Occupational Status:: retired Housing: assisted living facility *Travel in the last 8 weeks: None - Psychiatric History Pschychiatric History:: Reports:: Depression Family Hx:: Unable to obtain Review of Systems - Review of Systems Review of systems:: unable to obtain - *Neurologic Denies localized weakness, Denies headache(s), Denies seizure-like activity Meds Home Medications Medication Instructions Recorded Confirmed Type Bisacodyl [Bisacodyl 10mg Supp] 10 mg RC DAILYP PRN 02/11/22 02/23/22 History Citalopram Hydrobromide 10 mg PO DAILY 02/11/22 02/23/22 History [Citalopram 10mg Tablet] Furosemide [Lasix 20mg tablet] 20 mg PO DAILY 02/11/22 02/23/22 History Gabapentin 300 mg PO HS 02/11/22 02/23/22 History Gabapentin [Gabapentin 100mg Cap] 100 mg PO 0900,1300 02/11/22 02/23/22 History Hydromorphone HCl [Hydromorphone 6 mg PO Q3HP PRN MDD 24mg 02/11/22 02/23/22 History 4mg Tab] Lactulose 20 gm PO DAILY 02/11/22 02/23/22 History Metoprolol Tartrate [Lopressor 12.5 mg PO DAILY 02/11/22 02/23/22 History 25mg tablet] Omeprazole 20 mg PO DAILY 02/11/22 02/23/22 History Ondansetron [Ondansetron Odt 8mg 8 mg PO Q8HP PRN 02/11/22 02/23/22 History Tab] Sennosides/Docusate Sodium 2 each PO BIDP PRN 02/11/22 02/23/22 History [Senna-S 8.6-50 mg Tablet] Simethicone [Gas Relief] 80 mg PO QID 02/11/22 02/23/22 History dexAMETHasone [Dexamethasone] 2 mg PO BID 02/11/22 02/23/22 History Amoxicillin/Potassium Clav 500 mg PO BID 02/12/22 02/23/22 History [Augmentin 500mg tab] Cholecalciferol (Vitamin D3) 1,000 unit PO DAILY 02/12/22 02/23/22 History [Vitamin D3 1,000 Unit Cap] Collagenase Clostridium Hist. 1 lot TOPICAL DAILY 02/12/22 02/23/22 History [Santyl Ointment 30gm] Potassium Chloride [Klor-con 20 20 meq PO DAILY 02/12/22 02/23/22 History mEq tablet] Scopolamine 1 each TD Q72H 02/12/22 02/23/22 History Sodium Hypochlorite [Anasept] 1 applic TP DAILY 02/12/22 02/23/22 History fentaNYL [fentaNYL 100mcg Patch] 1 patch TD Q72H 02/12/22 02/23/22 History Acetaminophen 650 mg PO Q6HP PRN 04
--- NOTE | 2022-02-23 14:42 | P.CONPHA_ITS ---
[facility] Pharmacy VTE Monitoring - Patient Demographics Admission date: 02/23/22 Report Date: 02/23/22 Time: 14:42 Allergies/Adverse Reactions: Patient Allergies Sulfa (Sulfonamide Antibiotics) [SULFA (SULFONAMIDE ANTIBIOTICS)] Allergy (Intermediate, Verified 11/06/18 18:16) erythromycin base Allergy (Verified 11/06/18 18:16) Height: 1.68 m Weight: 60.866 kg Patient Problems: Current Active Problems Metastatic breast cancer (Acute) Hypertension (Acute) GERD (gastroesophageal reflux disease) (Acute) Acute delirium (Acute) - VTE Risk Labs: VTE Related Lab Results Hgb 10.0 g/dL (12.2-16.2) L D 02/23/22 04:34 Hct 30.5 % (37.0-47.0) L 02/23/22 04:34 Plt Count 239 K/mm3 (142-424) 02/23/22 04:34 BUN 37 mg/dl (7-17) H 02/23/22 04:34 Creatinine 0.50 mg/dl (0.52-1.04) L 02/23/22 04:34 Estimated Creat Clear 40 mL/min (50-200) 02/23/22 04:34 VTE Score: 2 - Prophylaxis Types of VTE Prophylaxis: TEDS Knee High Location of Applied Device: Bilateral Lower Extremeties (TEDS)
--- NOTE | 2022-02-23 17:25 | PC.NURSE ---
pt has a fentanyl patch in place to r shoulder
[2022-02-24 04:00] VITALS: BP 110/55; PULSE 69; RESP 17; TEMP 37.3; O2SAT 91
--- NOTE | 2022-02-24 04:00 | PC.NURSE ---
PT CONFUSED TO PLACE AND TIME, ORIENTED TO NAME ONLY, PT INCONTINENT, VSS, SKIN TEARS TO LEGS AND ARMS NOTED, SKIN VERY FRAGILE, PT COMBATIVE WHEN TRYING TO PROVIDE CARE
[2022-02-24 05:00] VITALS: BMI 23.4
[2022-02-24 07:53] LABS: Basophils % 0.3 % (0.1-2.0); Eosinophils # 0.1 K/mm3 (0.0-0.4); Eosinophils % 1.8 % (0.1-12.0); Lymphocytes # 1.1 K/mm3 (0.7-4.5); Lymphocytes % 16.8 % (10-50); Mean Corpuscular HGB Conc 32.4 g/dL (31.8-35.4); Mean Corpuscular Hemoglobin 27.9 pg (27.0-31.2); Mean Platelet Volume 7.4 fl (7.4-10.4); Monocytes # 0.3 K/mm3 (0.1-1.0); Monocytes % 5.2 % (1.7-9.3); Neutrophils # 4.9 K/mm3 (1.8-7.8); Neutrophils % 75.8 % (37.0-80.0); Platelet Count 200 K/mm3 (142-424); Red Cell Distribution Width 17.4 % (11.5-17.5); White Blood Count 6.4 K/mm3 (4.8-10.8)
[2022-02-24 08:01] LABS: Chloride 105 mmol/L (98-107); Sodium 134 mmol/L (136-145)
[2022-02-24 08:04] LABS: Blood Urea Nitrogen 24 mg/dl (7-17); Carbon Dioxide 28 mmol/L (22.0-30.0); Creatinine Clearance Estimated 43 mL/min (50-200); Estimated Glomerular Filt Rate 95 ml/min (>60); GFR (African American) 115 ML/MIN (>60)
[2022-02-24 08:05] LABS: Calcium 7.7 mg/dl (8.4-10.2); Glucose 75 mg/dl (74-100)
--- NOTE | 2022-02-24 08:10 | PC.NURSE ---
Pt refused to let me take her vitals. RN aware
--- NOTE | 2022-02-24 08:28 | PC.NURSE ---
pt is increasingly agitated this am. unable to be redirected. She is confused and combative
--- NOTE | 2022-02-24 09:26 | P.PN_ITS ---
Internal Medicine - PN: Subj *Date: 02/24/22 *Time: 09:26 Interval history: She has remained confused but has not required any medication until early this morning when she again became agitated and combative, trying to get out of bed. Exam Vital signs and Labs for Last 24 Hours: Temp Pulse Resp BP Pulse Ox 99.2 F 69 17 110/55 L 91 L 02/24/22 04:00 02/24/22 04:00 02/24/22 04:00 02/24/22 04:00 02/24/22 04:00 Laboratory Results - last 24 hr 02/24/22 07:09: WBC 6.4, RBC 3.60 L, Hgb 10.0 L, Hct 31.0 L, MCV 86.0, MCH 27.9, MCHC 32.4, RDW 17.4, Plt Count 200, MPV 7.4, Neut % (Auto) 75.8, Lymph % (Auto) 16.8, [place] % (Auto) 5.2, Eos % (Auto) 1.8, Baso % (Auto) 0.3, Neut # (Auto) 4.9, Lymph # (Auto) 1.1, [place] # (Auto) 0.3, Eos # (Auto) 0.1, Baso # (Auto) 0.0 02/24/22 07:09: Sodium 134 L, Potassium 4.0, Chloride 105, Carbon Dioxide 28, Anion Gap 5.0, BUN 24 H D, Creatinine 0.60, Estimated Creat Clear 43, Estimated GFR 95, Est GFR ( Amer) 115, Glucose 75, Calcium 7.7 L, Magnesium 2.0 I & O for Last 24 hours: Intake & Output 02/21/22 02/22/22 02/23/22 02/24/22 11:59 11:59 11:59 11:59 Intake Total 1525 / 1525 Balance 1525 / 1525 Weight 134 lb 3 oz 145 lb 14.4 oz Microbiology Reports for the Last 24 Hours: Microbiology 02/22/22 22:58 Urine,Clean Catch Urine Culture - Preliminary Narrative: She is alert but talking incoherently. Otherwise appears in no distress. Color is good. Lungs are clear. Heart is regular. Abdomen is soft and nondistended with no apparent tenderness. Extremities with trace pretibial edema and mild erythema of the lower legs. Assessment and Plan (1) Acute delirium Status: Acute Category: Medical Code(s): R41.0 - Disorientation, unspecified (2) Metastatic breast cancer Status: Acute Category: Medical Code(s): C50.919 - Malignant neoplasm of unspecified site of unspecified female breast (3) GERD (gastroesophageal reflux disease) Status: Acute Category: Medical Code(s): K21.9 - Gastro-esophageal reflux disease without esophagitis (4) Hypertension Status: Acute Category: Medical Code(s): I10 - Essential (primary) hypertension (5) Pelvic fracture Status: Acute Qualifiers: Encounter type: subsequent encounter Pelvic bone location: pubis Sublocation of pubis: unspecified portion of pubis Category: Medical Code(s): S32.9XXA - Fracture of unspecified parts of lum bosacral spine and pelvis, initial encounter for closed fracture (6) Cardiac pacemaker in situ Status: Acute Category: Medical Code(s): Z95.0 - Presence of cardiac pacemaker - Assessment and plan all Dx Assessment and Plan for all problems:: Etiology of her acute delirium remains unclear. Urine culture is pending. I was able to speak with her daughter this morning and and she was beginning to see some subtle changes for several days prior to onset of this acute episode of delirium. She was less talkative and had lost interest in usual activities such as reading and watching TV. Her daughter is not aware of any metastatic disease to the brain, only bone mets but notes that she had not had any further work-up for about a year. Discussed further brain imaging via MRI or CT scan with contrast; would likely have to be a CT since she currently has a pacemaker.
[2022-02-24 09:50] LABS: Ammonia < 9 umol/L (9-30)
[2022-02-24 16:00] VITALS: BP 135/49; PULSE 91; RESP 18; O2SAT 95
[2022-02-24 20:00] VITALS: BP 99/49; PULSE 86; RESP 15; TEMP 37.7; O2SAT 93
[2022-02-25 04:00] VITALS: BP 102/57; PULSE 78; RESP 14; TEMP 37.4; O2SAT 92
[2022-02-25 04:33] VITALS: BMI 22.1
[2022-02-25 07:41] VITALS: O2SAT 96
[2022-02-25 08:00] VITALS: BP 121/52; PULSE 78; RESP 16; TEMP 37.4; O2SAT 96
--- NOTE | 2022-02-25 08:58 | CT_ITS ---
FINAL REPORT TECHNIQUE: TECHNIQUE: Axial images of the head were obtained after contrast administration. Coronal reformatted images were also obtained.This study was performed with techniques to keep radiation doses as low as reasonably achievable (ALARA). Individualized dose reduction techniques using automated exposure control or adjustment of mA and/or kV according to the patient's size were employed. CLINICAL HISTORY: altered mental status; metastatic breast cancer COMPARISON: February 23, 2022 FINDINGS: CT HEAD/BRAIN W/CONTRAST There is moderate diffuse cortical atrophy. There is no evidence of intracranial hemorrhage or mass. There is proportionate ventriculomegaly. There is decreased attenuation in the deep white matter consistent with chronic ischemia. There is no evidence of shift of the midline structures. No abnormal extra axial fluid collection is identified. No skull abnormality is seen on the bone window images. There is no abnormal contrast enhancement. The paranasal sinuses are well aerated. IMPRESSION: Moderate diffuse cortical atrophy. No acute intracranial abnormality. Reviewed, Interpreted and Dictated by Wade Perez MD Transcribed by Nitza Ramon Authenticated by Wade Perez MD on 02/25/2022 10:31:40 AM [facility]
--- NOTE | 2022-02-25 09:09 | SW/DCPLANNER ---
Addendum entered by Neyda Diana 02/25/22 13:26: The plan for this patient is to discharge back to [facility] unit at [place] today. I have also updated Renee rockwell/ [facility] of this plan. Addendum entered by Neyda Diana 02/25/22 11:52: Mariella rockwell/ Ranjeet Thompson will be to [facility] this afternoon to evaluate this patient. Addendum entered by Neyda Diana 02/25/22 10:16: Samantha rockwell/ Duane Aguayo stated that this patient's admission is related to Hospice diagnosis. Original Note: This patient currently resides at [facility] under Personal Care and is established with Hospice Care. I will follow up with Mariella from [place] and Rosalia with [facility] this AM.
[2022-02-25 12:33] VITALS: BMI 22.1
--- NOTE | 2022-02-25 13:29 | HMH.ACPN2 ---
<Lana Lara - Last Filed: 02/25/22 13:29> Internal Medicine - PN: Subj *Date: 02/25/22 *Time: 13:29 Interval history: Patient was seen this morning. Brother was visiting with her. Patient did talk with her brother. She would not speak to me. She told her brother that she loved him when he left. She allowed for partial exam. Nursing has reported recurring incidences of anxiety and resistance. Exam Vital signs and Labs for Last 24 Hours: Temp Pulse Resp BP Pulse Ox 99.3 F 78 16 121/52 L 96 02/25/22 08:00 02/25/22 08:00 02/25/22 08:00 02/25/22 08:00 02/25/22 08:00 I & O for Last 24 hours: Intake & Output 02/23/22 02/24/22 02/25/22 02/26/22 11:59 11:59 11:59 11:59 Intake Total 1525 / 1525 632 / 632 Balance 1525 / 1525 632 / 632 Weight 134 lb 3 oz 145 lb 14.4 oz 138 lb 137 lb 15.797 oz Microbiology Reports for the Last 24 Hours: Microbiology 02/23/22 00:22 Blood Blood Culture - Preliminary NO GROWTH AFTER 48 HOURS 02/23/22 00:22 Blood Blood Culture - Preliminary NO GROWTH AFTER 48 HOURS - Constitutional no acute distress Comments: Lying on her right side. Indicates for me to leave her alone. - *Routine Respiratory Exam Present: CTA bilaterally (Anteriorly) - *Routine Cardiovascular Exam Present: RRR - *Routine Extremities Exam Present: edema (Some bilateral leg edema.) Comments: Bilateral legs with less erythema. - *Routine Neurological Exam Present: alert Unable to determine orientation. Assessment and Plan (1) Acute delirium Status: Acute Category: Medical Code(s): R41.0 - Disorientation, unspecified (2) Metastatic breast cancer Status: Acute Category: Medical Code(s): C50.919 - Malignant neoplasm of unspecified site of unspecified female breast (3) GERD (gastroesophageal reflux disease) Status: Acute Category: Medical Code(s): K21.9 - Gastro-esophageal reflux disease without esophagitis (4) Hypertension Status: Acute Category: Medical Code(s): I10 - Essential (primary) hypertension (5) Pelvic fracture Status: Acute Qualifiers: Encounter type: subsequent encounter Pelvic bone location: pubis Sublocation of pubis: unspecified portion of pubis Category: Medical Code(s): S32.9XXA - Fracture of unspecified parts of lumbosacral spine and pelvis, initial encounter for closed fracture (6) Cardiac pacemaker in situ Status: Acute Category: Medical Code(s): Z95.0 - Presence of cardiac pacemaker - Assessment and plan all Dx Assessment and Plan for all problems:: Patient has had a repeat CT of her head this morning which showed moderate diffuse cortical atrophy with no acute intracranial abnormality. A bed has been obtained on the [facility] service area at [place]. She will be transferred back to this facility today. Dr. Cabrales has spoken with the daughter as to test results. <Julio Cabrales - Last Filed: 02/25/22 17:46> Internal Medicine - PN: Subj *Date: 02/25/22 *Time: 17:44 Exam Vital signs and Labs for Last 24 Hours: Temp Pulse Resp BP Pulse Ox 99.3 F 78 16 121/52 L 96 02/25/22 08:00 02/25/22 08:00 02/25/22 08:00 02/25/22 08:00 02/25/22 08:00 I & O for Last 24 hours: Intake & Output 02/23/22 02/24/22 02/25/22 02/26/22 11:59 11:59 11:59 11:59 Intake Total 1525 / 1525 632 / 632 Balance 1525 / 1525 632 / 632 Weight 134 lb 3 oz 145 lb 14.4 oz 138 lb 137 lb 15.797 oz Microbiology Reports for the Last 24 Hours: Microbiology 02/23/22 00:22 Blood Blood Culture - Preliminary NO GROWTH AFTER 48 HOURS 02/23/22 00:22 Blood Blood Culture - Preliminary NO GROWTH AFTER 48 HOURS Assessment and Plan (1) Acute delirium Status: Acute Category: Medical Code(s): R41.0 - Disorientation, unspecified (2) Metastatic b
--- NOTE | 2022-02-25 13:35 | HMH.DCSUM ---
General - General Admission date:: 02/23/22 <Julio Cabrales - 03/08/22 07:52> 02/23/22 <Lana Lara - 02/25/22 13:50> Discharge date: 02/25/22 <JaneJoelleLana - 02/25/22 13:50> HPI HPI: Ms. Ramon is an 86-year-old white female with a history of metastatic breast cancer who is currently a resident of the assisted living facility at [facility] and is under the care of hospice. She was in her usual state of health when she became agitated and verbally and physically aggressive with the staff at [facility] to the point that they could not manage her care. They called her family who also was unable to get her to calm down. She was therefore transported to the ER for further evaluation. Laboratory work-up in the ER was noncontributory. Her urinalysis showed 10-20 white cells and with pending culture. She had a repeat CT scan of the head to follow-up on a fall from 10 days ago. There was no indication of subdural hematoma. She was boarded in the ER last evening because no beds were available in the hospital. She rested quietly through the night but the following morning she became agitated again, trying to get out of bed and talking incoherently. She eventually required a dose of Ativan to get her to calm down. She was then admitted to the floor and was much more calm. She was cooperating with the staff and eating some lunch. She was still confused and oriented to name only. <JaneLana - 02/25/22 13:50> Hospital Course Hospital Course: After admission patient remained confused. She was given Haldol for agitation. She did speak with family but had little to say to nursing staff and providers. She was incontinent of urine. She also refused most of her meals. Blood chemistries were satisfactory. Troponin I was negative. Ammonia was less than 9. CBC show some anemia but was stable. White count was normal. Urinalysis was negative. Repeat CT scan of the head completed this a.m. 02/25/2022 showed nothing acute. A bed was obtained by care management at [facility] on the skilled side. She will be discharged back to [facility] with hospice in attendance. Dr. Cabrales did discuss the results of her tests with the family. She will be followed at [facility] by Dr. Cabrales. Medications as per medication reconciliation sheet. <Lana Lara - 02/25/22 13:50> Objective Vital signs: Temp Pulse Resp BP Pulse Ox 99.3 F 78 16 121/52 L 96 02/25/22 08:00 02/25/22 08:00 02/25/22 08:00 02/25/22 08:00 02/25/22 08:00 <Julio Cabrales - 03/08/22 07:52> Temp Pulse Resp BP Pulse Ox 99.3 F 78 16 121/52 L 96 02/25/22 08:00 02/25/22 08:00 02/25/22 08:00 02/25/22 08:00 02/25/22 08:00 <Lana Lara - 02/25/22 13:50> Narrative: Constitutional agitated (but calmer now after Ativan) - *Routine HEENT Exam Head: Present: normocephalic, atraumatic Eye: Present: EOMI, PERRL, scleral injection. Absent: conjunctival icterus ENT: Present: mucous membranes moist - *Routine Neck Exam Present: supple, carotid bruit, lymphadenopathy - *Routine Respiratory Exam Present: CTA bilaterally - *Routine Cardiovascular Exam Present: RRR. Absent: murmur - *Routine Abdominal Exam Present: soft. Absent: tenderness - *Routine Rectal Exam Rectal:: deferred - *Routine Genitalia Exam Genitalia:: deferred - *Routine Extremities Exam Present: edema (trace PTE) - *Routine Skin Exam Present: erythema (of bilateral shins but improved ), ecchymosis. Absent: rash - *Routine Neurological Exam Present: altered mental status, normal speech. Absent: motor deficit Oriented to name only. <Lana Lara - 02/25/22 13:50> Results Completed studies during hospitalization [Text1]: 03/27/[address] of the head IMPRESSION: Moderate diffuse cortical atrophy. No acute intracranial abnormality. 02/22/22 22:58: Urine Color Yellow, Urine Appearance Clear,
--- NOTE | 2022-02-25 17:02 | PC.NURSE ---
PT IS RESTING IN BED. PT HAS BEEN UNCOOPERATIVE WITH CARE T/O THE SHIFT. PT HAS SCATTERED BRUISING/ABRASIONS NOTED TO BUE/BLE. PT HAS REFUSED TO EAT AND DRINK ALL DAY. PT HAS NOT BEEN WANTING TO ANSWER NURSING STAFF QUESTIONS BUT SHE DID HAVE A CONVERSATION WITH BROTHER TODAY WHEN HE CAME TO VISIT. PT STATED TO HER BROTHER THAT SHE JUST WANTED TO GO BACK TO [facility] AND STATED SHE WOULD NOT BE HERE IN A COUPLE OF DAYS. REPORT HAS BEEN CALLED TO [facility]. PT IS WAITING AMBULANCE RIDE. HOSPICE HAS BEEN NOTIFIED ABOUT PT DISCHARGING BACK TO [facility]. PORT FLUSHED WITH HEPARIN BEFORE DEACCESS. NEW DRESSINGS APPLIED TO SKIN TEAR ON THE RLE/LUE. ATTENDS CHANGED. WILL CONTINUE TO MONITOR.
--- NOTE | 2022-02-26 13:23 | CARE MANAGER ---
Attempted to contact Ranjeet Thompson. They were unable to reach nurse for her at this time.
--- NOTE | 2022-02-27 15:31 | CARE MANAGER ---
Contacted Ranjeet Thompson related to follow up from hospital discharge. States she is doing better. Initially she wouldn't respond to them when she arrived but she is doing better today. Denies questions or concerns. DELGADO Campos
== END 2022-02-25 18:37 | disposition hospice, inpatient (51) ==
LOC: ER 22:53 → 2ND 02-23 00:25
PROVIDERS: Admitting Provider Family Medicine; Emergency Provider Emergency Medicine; PCP Family Medicine; Visit Provider Family Medicine
DX: R41.0 Disorientation, unspecified (principal); K21.9 Gastro-esophageal reflux disease without esophagitis; Z20.822 Contact with and (suspected) exposure to COVID-19; Z79.899 Other long term (current) drug therapy; Z88.2 Allergy status to sulfonamides; R29.6 Repeated falls; S32.592D Other specified fracture of left pubis, subsequent encounter for fracture with routine healing; R45.1 Restlessness and agitation; I10 Essential (primary) hypertension
CPT/HCPCS: 36415; 70450; 70460; 80048; 80053; 81001; 82140; 83605; 83735; 84145; 84484; 85025; 85651; 86140; 87040; 87086; 87088; 87186; 96375; 99285; C9803; G0378; J1642; J1956; Q9967; U0003; U0005

== ENCOUNTER 2022-03-30 22:49 | Emergency (ER) | payer OTHER, MEDICARE, BC, SELFPAY ==
[2022-03-30 22:41] VITALS: BP 133/70; PULSE 84; RESP 18; TEMP 36.8; O2SAT 93; BMI 23.4
[2022-03-30 22:49] VITALS: BMI 23.4
--- NOTE | 2022-03-30 22:50 | XR_ITS ---
PROCEDURE INFORMATION: Exam: XR Right Shoulder Exam date and time: 03/30/2022 11:04 PM Age: 86 years old Clinical indication: Injury or trauma; Fall; Blunt trauma (contusions or hematomas); Shoulder; Right TECHNIQUE: Imaging protocol: XR Right shoulder. Views: 2 or more views. COMPARISON: CR XR CHEST PORTABLE 03/30/2022 11:03 PM FINDINGS: Tubes, catheters and devices: A right chest port catheter is noted. Bones/joints: Osteopenia. No dislocation. No acute fracture of the visualized proximal humerus or shoulder girdle. Probable healing or chronic nondisplaced fracture of the right posterolateral 4th rib. Soft tissues: Normal. IMPRESSION: 1. No acute fracture or dislocation of the right shoulder. 2. Probable healing or chronic fracture of the posterolateral right 4th rib.
--- NOTE | 2022-03-30 22:50 | XR_ITS ---
PROCEDURE INFORMATION: Exam: XR Right Humerus Exam date and time: 03/30/2022 11:06 PM Age: 86 years old Clinical indication: Injury or trauma; Fall; Blunt trauma (contusions or hematomas); Arm, upper; Right TECHNIQUE: Imaging protocol: XR Right humerus. Views: 2 or more views. COMPARISON: CR XR SHOULDER RT MIN 2V 03/30/2022 11:04 PM FINDINGS: Bones/joints: Several right rib fractures are visualized, majority of which appear healing or chronic in nature. However, there is some age-indeterminate right lateral lower rib fractures. No acute fracture of the right proximal humerus. Possible age-indeterminate fracture of the scapular body. Evaluation is limited by the marked osteopenia. Soft tissues: Normal. IMPRESSION: 1. No acute fracture of the right humerus. 2. Possible age-indeterminate fracture of the scapular body. 3. Several right rib fractures, most of which appear healing or chronic. However, there are age-indeterminate right lower rib fractures as well. Consider CT of the chest for further assessment of the above findings.
--- NOTE | 2022-03-30 22:50 | XR_ITS ---
PROCEDURE INFORMATION: Exam: XR Right Forearm Exam date and time: 03/30/2022 11:10 PM Age: 86 years old Clinical indication: Injury or trauma; Fall; Laceration; Arm, lower; Right TECHNIQUE: Imaging protocol: XR Right forearm. Views: 2 views. COMPARISON: No relevant prior studies available. FINDINGS: Bones/joints: Osteopenia. No acute fracture. No dislocation. Soft tissues: Large laceration of the proximal to mid forearm soft tissues. No radiopaque foreign body. IMPRESSION: Large forearm laceration. No radiopaque foreign body.
--- NOTE | 2022-03-30 22:50 | XR_ITS ---
PROCEDURE INFORMATION: Exam: XR Chest Exam date and time: 03/30/2022 11:03 PM Age: 86 years old Clinical indication: Injury or trauma; Fall; Blunt trauma (contusions or hematomas) TECHNIQUE: Imaging protocol: XR of the chest. Views: 1 view. COMPARISON: CR CXR2V XR chest 2V 11/06/2018 6:17 PM FINDINGS: Tubes, catheters and devices: Left chest wall pacemaker device. Right chest port. Lungs: Lungs are mildly hypoinflated. Linear subsegmental atelectasis or scarring near the bilateral lung bases. No consolidation. Pleural spaces: No pneumothorax or pleural effusion is seen. Heart/Mediastinum: Heart size within normal limits. Tortuous/ectatic thoracic aorta. Bones/joints: Profound osteopenia. There may also be widespread osseous metastatic disease, and any of the fractures described could be pathologic. Multiple thoracic compression deformities are seen, which are age unknown, but new since chest radiograph of 11/06/2018. Multiple right rib fractures, some of which appear probably healing/chronic, but others are age-indeterminate. Possible age-indeterminate fracture of the right scapular body. IMPRESSION: 1. Subsegmental atelectasis or scarring near the lung bases. 2. Profound osteopenia. Possible widespread osseous metastatic disease. 3. Several right rib fractures, some of which are age indeterminate. Multiple thoracic compression deformities, age indeterminate. Possible right scapular fracture, age indeterminate. Any of these could be pathologic in nature. Consider chest CT.
--- NOTE | 2022-03-30 22:50 | XR_ITS ---
PROCEDURE INFORMATION: Exam: XR Right Hip Exam date and time: 03/30/2022 11:19 PM Age: 86 years old Clinical indication: Injury or trauma; Fall; Blunt trauma (contusions or hematomas); Right; Hip; Prior surgery; Surgery date: 6+ months TECHNIQUE: Imaging protocol: XR Right hip. Views: 2 or 3 views hip with pelvis when performed. COMPARISON: CR XR PELVIS 1-2V 02/11/2022 3:22 PM FINDINGS: Bones/joints: Profound osteopenia. Some more focal lucencies in the pelvis and proximal femora are highly suggestive of either metastatic disease or myeloma. Healing fractures of the left pubic rami and sacrum. Left superior pubic ramus fracture likely has extension into the left acetabulum. Healing, transfixed fracture of the right intertrochanteric/subtrochanteric femur, alignment unchanged. Distal margin of the right femoral intramedullary nail is not seen. No acute/interval fracture identified. Soft tissues: Right lateral hip soft tissue swelling is nonspecific, could be contusion/hematoma. IMPRESSION: 1. Profound osteopenia. High probability of either widespread osseous metastatic disease or multiple myeloma. 2. No acute/interval fracture since 02/11/2022. Healing fractures of the sacrum and left pubic rami. Healing, transfixed right proximal femur fracture. Any/all of these fractures could be pathologic. 3. Right lateral hip soft tissue swelling.
--- NOTE | 2022-03-30 22:50 | XR_ITS ---
PROCEDURE INFORMATION: Exam: XR Right Hand Exam date and time: 03/30/2022 11:12 PM Age: 86 years old Clinical indication: Injury or trauma; Fall; Blunt trauma (contusions or hematomas); Hand; Right TECHNIQUE: Imaging protocol: XR Right hand. Views: 3 or more views. COMPARISON: CR XR FOREARM RT 2V 03/30/2022 11:10 PM FINDINGS: Bones/joints: Osteopenia. No acute displaced fracture. No dislocation. Multifocal degenerative changes. Soft tissues: Normal. IMPRESSION: No acute finding.
--- NOTE | 2022-03-30 23:16 | HMH.EDFALL ---
ED Disposition Clinical Impression: Metastatic breast cancer Laceration of forearm Qualifiers: Encounter type: initial encounter Laterality: right Qualified Code(s): S51.811A - Laceration without foreign body of right forearm, initial encounter Fall Qualifiers: Encounter type: initial encounter Qualified Code(s): W19.XXXA - Unspecified fall, initial encounter Disposition: Home, Self-Care Condition on Discharge: Good Instructions: How to Prevent Falls Additional Instructions: sutures out 12 days Referrals: Julio Cabrales MD [Primary Care Provider] - - Critical Care Critical Care Time: No Attestation: On 03/30/22, the high probability of a clinically significant, sudden or life threatening deterioration of the following system(s) required my full and direct attention, intervention and personal management. The time I documented below is in addition to time spent performing reported procedures but includes the following listed in this critical care notation. Medical Decision Making - Medical Records Medical records reviewed: Yes: I reviewed the patient's medical records. - [place] Inquiry Pt receiving controlled substance: No Vital Signs: 03/30/22 22:41 Temperature 98.3 F Temperature Source Oral Pulse Rate [Right] 84 Respiratory Rate 18 Blood Pressure [Right Arm] 133/70 Blood Pressure Mean [Right Arm] 91 02 Sat by Pulse Oximetry 93 L - Lab Data Lab results reviewed: Yes: I reviewed the patient's lab results. - Radiology Data #1 Image(s): Chest, Shoulder, Humerus, Forearm, Hand, Pelvis, Hip, Knee Image Reviewed: Yes I have reviewed radiologist's interpretation Preliminary Findings: Abnormal (see report- mets but no acute fx seen ) Medical Decision Narrative: pt with lac rt forearm extensive but suture and dermabond and has known mets but no new fx seen Fall HPI - General Chief Complaint: Fall Stated Complaint: fall Time Seen by Provider: 03/30/22 23:16 Mode of Arrival: EMS Source of Information: Patient, Relative, EMS, Medical Record Limitations: Altered Mental Status Description of Symptoms (Recalled from ER Triage Doc. by RN): jail reports pt states she threw herself out of bed for help. pt found laying on her rt side with skin tear to rt arm. pt c/o rt shoulder, hip and arm pain - History of Present Illness HPI Narrative: fell oob with lac rt forearm and no specific pain - has hx of metastatic breast cancer on pain meds and hospice complaint: fall Onset (ago): hour(s) Fall from: out of bed Fall witnessed: no Place fall occurred: jail[facility] Loss of consciousness: none Prolonged down time: no Context: history of frequent falls Location of injury - extremities: Right: forearm Severity: moderate Associated symptoms (after fall): denies - Related Data Home Medications Medication Instructions Recorded Confirmed Bisacodyl [Bisacodyl 10mg Supp] 10 mg RC DAILYP PRN 02/11/22 03/30/22 Citalopram Hydrobromide 10 mg PO DAILY 02/11/22 03/30/22 [Citalopram 10mg Tablet] Hydromorphone HCl [Hydromorphone 6 mg PO Q3HP PRN MDD 24mg 02/11/22 03/30/22 4mg Tab] Metoprolol Tartrate [Lopressor 12.5 mg PO DAILY 02/11/22 03/30/22 25mg tablet] Ondansetron [Ondansetron Odt 8mg 8 mg PO Q8HP PRN 02/11/22 03/30/22 Tab] fentaNYL [fentaNYL 100mcg Patch] 1 patch TD Q72H 02/12/22 03/30/22 Acetaminophen 650 mg PO Q6HP PRN 02/23/22 03/30/22 Allergies Allergy/AdvReac Type Severity Reaction Status Date / Time Sulfa (Sulfonamide Allergy Intermediate Verified 11/06/18 18:16 Antibiotics) [SULFA (SULFONAMIDE ANTIBIOTICS)] erythromycin base Allergy Verified 11/06/18 18:16 [facility] History - Hepatitis A Screen Attestation statement:: This patient has been screened for Hepatitis A risk factors. I have reviewed the patient's past medical history: Yes Medical History: Reports:: Cancer (metastatic breast cancer), Depression, Gastro
--- NOTE | 2022-03-30 23:26 | XR_ITS ---
PROCEDURE INFORMATION: Exam: XR Right Knee Exam date and time: 03/30/2022 11:21 PM Age: 86 years old Clinical indication: Injury or trauma; Fall; Blunt trauma; Knee; Right TECHNIQUE: Imaging protocol: XR Right knee. Views: 1 or 2 views. COMPARISON: CR XR KNEE RT 3V 02/11/2022 3:32 PM FINDINGS: Bones/joints: Marked osteopenia. Cannot exclude superimposed osteolytic lesions. Partially visualized intramedullary nail fixation of the femur with distal interlocking screws. Less than 1 mm lucency is seen around the tip of the more proximal interlocking screw, suggesting micro-motion, unchanged since 02/11/2022. No acute fracture identified. Probable trace nonspecific knee joint fluid. No large joint effusion. A 0.9 cm chronic/corticated ossific body is seen near the anterior tibial plateau, could be intra-articular. Soft tissues: Unremarkable. IMPRESSION: No acute fracture.
[2022-03-31 01:20] VITALS: BP 125/78; PULSE 80; RESP 18; TEMP 36.8; O2SAT 93
== END 2022-03-31 01:22 | disposition home or self-care (01) ==
PROVIDERS: Emergency Provider Emergency Medicine; PCP Family Medicine
DX: S51.811A Laceration without foreign body of right forearm, initial encounter (principal); C50.919 Malignant neoplasm of unspecified site of unspecified female breast; W06.XXXA Fall from bed, initial encounter; Y92.122 Bedroom in nursing home as the place of occurrence of the external cause; S40.011A Contusion of right shoulder, initial encounter; S70.01XA Contusion of right hip, initial encounter; F33.1 Major depressive disorder, recurrent, moderate; K21.9 Gastro-esophageal reflux disease without esophagitis; I10 Essential (primary) hypertension; Z95.0 Presence of cardiac pacemaker; Z79.899 Other long term (current) drug therapy
CPT/HCPCS: 12032; 71045; 73030; 73060; 73090; 73130; 73502; 73560; 99283

== ENCOUNTER 2022-05-17 21:33 | Inpatient (IN) | payer OTHER, MEDICARE, BC, SELFPAY ==
[2022-05-17 21:29] VITALS: BP 146/67; PULSE 82; RESP 18; TEMP 36.9; O2SAT 98; BMI 19.4
[2022-05-17 21:33] VITALS: BMI 20.5
--- NOTE | 2022-05-17 21:34 | XR_ITS ---
PROCEDURE INFORMATION: Exam: XR Chest Exam date and time: 05/17/2022 10:19 PM Age: 86 years old Clinical indication: Sternal or substernal pain and other: FX left hip; Additional info: No fall, poss hip out of place TECHNIQUE: Imaging protocol: Radiologic exam of the chest. Views: 4 or more views. COMPARISON: CR XR CHEST PORTABLE 03/30/2022 11:03 PM FINDINGS: Tubes, catheters and devices: Cardiac pacemaker without gross hardware complication or change. Right subclavian port with catheter tip in the distal SVC. Lungs: Low lung volumes. Moderate central vascular congestion. Alveolar opacities in bilateral perihilar and basilar distributions could represent atelectasis, pneumonia, or edema. Pleural spaces: Blunting of the lateral costophrenic angles bilaterally could relate to small basilar effusions or pleural scarring. No pneumothorax. Heart/Mediastinum: Mild cardiomegaly. No tracheal/mediastinal shift. Bones/joints: No acute osseous abnormalities are identified. Osteopenia. Chronic bilateral rib fractures and numerous chronic compression fractures in the mid and lower thoracic spine grossly unchanged. Other findings: Moderate rightward rotation. IMPRESSION: 1. Low lung volumes. 2. Bilateral perihilar and basilar alveolar densities are new. This could represent atelectasis from low lung volumes although cannot exclude elements of pneumonia or edema. 3. Blunted costophrenic angle suggesting small basilar effusions versus basilar pleural scarring or atelectasis. 4. Suspected cardiomegaly and vascular congestion although likely accentuated by technique. 5. Additional nonemergent findings detailed above.
--- NOTE | 2022-05-17 21:34 | XR_ITS ---
PROCEDURE INFORMATION: Exam: XR Left Hip Exam date and time: 05/17/2022 10:11 PM Age: 86 years old Clinical indication: Hip pain and pelvic pain; Left hip; Additional info: No fall, poss hip out of place/fx TECHNIQUE: Imaging protocol: Radiologic exam of the Left hip. Views: 2 or 3 views hip with pelvis when performed. COMPARISON: CR XR PELVIS 1-2V 02/11/2022 3:22 PM FINDINGS: Bones/joints: Both views of the proximal left femur offered essentially the same projection, limiting the assessment. There is a proximal left femoral fracture which is centered in the subtrochanteric distribution, with 90 degrees apex lateral angulation. There is suspected local bony remodeling and this could represent pathological fracture, correlate clinically for any history of metastatic disease. There is also a 15 mm lytic lesion in the proximal femoral diaphysis about 5 cm distal to the fracture, raising further concern for an underlying metastatic process. Chronic mildly displaced fracture of the junction of the left superior pubic ramus and left anterior acetabular rim again noted. Chronic fracture of the left inferior pubic ramus again noted. Right proximal femoral fixation hardware again noted, with anatomic alignment and no gross hardware complication. Diffuse osteopenia. Bilateral sacral sclerosis suspicious for changes of chronic insufficiency fractures unchanged. Soft tissues: Lateral soft tissue swelling at the hip. IMPRESSION: 1. Fracture of the proximal left femoral diaphysis in the subtrochanteric distribution with about 90 degrees apex lateral angulation. 2. There is suspected bony remodeling with lateral cortical thinning at the level of the fracture, suspicious for possible pathological fracture. Suspected 10 mm osteolytic lesion in the femur about 5 cm distal to the fracture raises further concern for an underlying pathological process such as metastatic disease or myeloma. Consider nonemergent bone scan. 3. Chronic fractures in the left hemipelvis grossly unchanged from 02/11/2022. 4. Right femoral fixation hardware without gross complication or change. 5. Bilateral sacral sclerosis suspicious for changes of chronic insufficiency fractures, unchanged. 6. Osteopenia. THIS REPORT CONTAINS FINDINGS THAT MAY BE CRITICAL TO PATIENT CARE. The findings were verbally communicated via telephone conference with ZACK CHAMPION at 10:46 PM EDT on 05/17/2022. The findings were acknowledged and understood.
[2022-05-17 21:47] LABS: Basophils # 0.1 K/mm3 (0-0.2); Eosinophils # 0.2 K/mm3 (0.0-0.4); Hemoglobin 10.5 g/dL (12.2-16.2); Lymphocytes # 1.9 K/mm3 (0.7-4.5); Lymphocytes % 25.1 % (10-50); Mean Corpuscular HGB Conc 30.8 g/dL (31.8-35.4); Mean Corpuscular Hemoglobin 26.7 pg (27.0-31.2); Mean Corpuscular Volume 86.7 fl (81-99); Monocytes # 0.6 K/mm3 (0.1-1.0); Monocytes % 7.6 % (1.7-9.3); Neutrophils # 4.9 K/mm3 (1.8-7.8); Neutrophils % 64.3 % (37.0-80.0); Platelet Count 523 K/mm3 (142-424); Red Blood Count 3.92 M/mm3 (4.20-5.40); Red Cell Distribution Width 17.6 % (11.5-17.5); White Blood Count 7.7 K/mm3 (4.8-10.8)
[2022-05-17 21:51] LABS: Alanine Aminotransferase 16 U/L (12-78); Albumin Level 3.2 g/dl (3.5-5.0); Albumin/Globulin Ratio 1.1 (1.1-1.8); Alkaline Phosphatase 194 U/L (38-126); Anion Gap 10.8 mEq/L (5-15); Aspartate Amino Transferase 42 U/L (14-36); Bilirubin,Total 0.7 mg/dl (0.2-1.3); Blood Urea Nitrogen 11 mg/dl (7-17); Calcium 9.1 mg/dl (8.4-10.2); Carbon Dioxide 30 mmol/L (22.0-30.0); Chloride 100 mmol/L (98-107); Creatinine Clearance Estimated 35 mL/min (50-200); Estimated Glomerular Filt Rate 152 ml/min (>60); GFR (African American) 184 ML/MIN (>60); Globulin 2.9 g/dL (1.3-3.2); Glucose 129 mg/dl (74-100); Potassium 3.8 mmoL/L (3.5-5.1); Sodium 137 mmol/L (136-145); Total Protein,Serum 6.1 g/dl (6.3-8.2)
[2022-05-17 21:56] LABS: C-Reactive Protein 43.5 mg/L (0-4)
[2022-05-17 22:00] VITALS: BP 146/85; PULSE 79; RESP 27; O2SAT 92
[2022-05-17 22:17] LABS: Erythrocyte Sedimentation Rate 44 mm/hr (0-30)
[2022-05-17 22:22] LABS: Coronavirus 19, PCR Not Detected (NotDetected); Influenza A, PCR Not Detected (NotDetected); Influenza B, PCR Not Detected (NotDetected)
--- NOTE | 2022-05-17 22:27 | PC.NURSE ---
Pt daughter, Taniya, updated over phone
[2022-05-17 22:30] VITALS: BP 152/79; PULSE 72; RESP 14; O2SAT 92
--- NOTE | 2022-05-17 22:45 | PC.NURSE ---
Dr. Seaman s/w rianad
--- NOTE | 2022-05-17 22:53 | HMH.EDLOEX ---
ED Disposition Clinical Impression: Metastatic breast cancer, Cardiac pacemaker in situ Femur fracture, left Qualifiers: Encounter type: initial encounter Femur location: subtrochanteric Fracture type: closed Fracture alignment: displaced Qualified Code(s): S72.22XA - Displaced subtrochanteric fracture of left femur, initial encounter for closed fracture Disposition: Admitted As Inpatient Condition on Discharge: Serious - Critical Care Critical Care Time: No Attestation: On 05/17/22, the high probability of a clinically significant, sudden or life threatening deterioration of the following system(s) required my full and direct attention, intervention and personal management. The time I documented below is in addition to time spent performing reported procedures but includes the following listed in this critical care notation. Medical Decision Making - Medical Records Medical records reviewed: Yes: I reviewed the patient's medical records. - [place] Inquiry Pt receiving controlled substance: No Vital Signs: 05/17/22 21:29 05/17/22 22:00 05/17/22 22:30 Temperature 98.5 F Temperature Source Oral Pulse Rate 79 72 Pulse Rate [Left Radial] 82 Respiratory Rate 18 27 H 14 Blood Pressure 146/85 H 152/79 H Blood Pressure [Right Arm] 146/67 H Blood Pressure Mean Blood Pressure Mean [Right Arm] 93 Blood Pressure Position [Right Arm] Sitting 02 Sat by Pulse Oximetry 98 92 L 92 L Oxygen Delivery Method Room Air Nasal Cannula Nasal Cannula Oxygen Flow Rate (LPM) 2 2 05/17/22 23:00 05/17/22 23:46 05/17/22 23:51 Temperature Temperature Source Pulse Rate 77 77 72 Pulse Rate [Left Radial] Respiratory Rate 22 25 H 25 H Blood Pressure 152/75 H 146/67 H 150/76 H Blood Pressure [Right Arm] Blood Pressure Mean 120 122 Blood Pressure Mean [Right Arm] Blood Pressure Position [Right Arm] 02 Sat by Pulse Oximetry 93 L 93 L 93 L Oxygen Delivery Method Nasal Cannula Oxygen Flow Rate (LPM) 2 05/18/22 00:00 05/18/22 02:09 Temperature Temperature Source Pulse Rate 72 74 Pulse Rate [Left Radial] Respiratory Rate 25 H 21 Blood Pressure 140/64 155/72 H Blood Pressure [Right Arm] Blood Pressure Mean 107 Blood Pressure Mean [Right Arm] Blood Pressure Position [Right Arm] 02 Sat by Pulse Oximetry 93 L 95 Oxygen Delivery Method Room Air Oxygen Flow Rate (LPM) - Lab Data Lab results reviewed: Yes: I reviewed the patient's lab results. Lab Results 05/17/22 21:30: WBC 7.7, RBC 3.92 L, Hgb 10.5 L, Hct 34.0 L, MCV 86.7, MCH 26.7 L, MCHC 30.8 L, RDW 17.6 H, Plt Count 523 H, MPV 8.0, Neut % (Auto) 64.3, Lymph % (Auto) 25.1, [place] % (Auto) 7.6, Eos % (Auto) 2.0, Baso % (Auto) 1.0, Neut # (Auto) 4.9, Lymph # (Auto) 1.9, [place] # (Auto) 0.6, Eos # (Auto) 0.2, Baso # (Auto) 0.1, ESR 44 H 05/17/22 21:30: Sodium 137, Potassium 3.8, Chloride 100, Carbon Dioxide 30, Anion Gap 10.8, BUN 11, Creatinine 0.40 L, Estimated Creat Clear 35, Estimated GFR 152, Est GFR ( Amer) 184, Glucose 129 H, Calcium 9.1, Total Bilirubin 0.7, AST 42 H, ALT 16, Alkaline Phosphatase 194 H, C-Reactive Protein 43.5 H, Total Protein 6.1 L, Albumin 3.2 L, Globulin 2.9, Albumin/Globulin Ratio 1.1, Procalcitonin 0.060 05/17/22 22:14: SARS-CoV-2 (PCR) Not detected, Influenza A Untype (PCR) Not detected, Influenza Type B (PCR) Not detected 05/18/22 00:22: Hgb 9.5 L, Hct 29.5 L Result diagrams: 05/18/22 00:22 05/17/22 21:30 Orders (Tests/Meds): ED MEDICATIONS Generic Name Dose Route Start Last Admin Trade Name Freq PRN Reason Stop Dose Admin Sodium Chloride 1,000 mls @ 999 mls/hr 05/17/22 22:00 05/17/22 21:49 Sod Chlor 0.9% 1000ml Bag IV 05/17/22 23:00 999 mls/hr .Q1H1M BRITTANY Administration Sodium Chloride 1,000 mls @ 999 mls/hr 05/17/22 23:45 05/17/22 23:43 Sod Chlor 0.9% 1000ml Bag IV 05/18/22 00:45 999 mls/hr .Q1H1M BRITTANY Administration Discontinued Medications Generic Name D
[2022-05-17 23:00] VITALS: BP 152/75; PULSE 77; RESP 22; O2SAT 93
--- NOTE | 2022-05-17 23:14 | PC.NURSE ---
at updating pt on POC
--- NOTE | 2022-05-17 23:43 | PC.NURSE ---
Pt given warm blanket for comfort. Pt also complains of pain. Nurse notified.
[2022-05-17 23:46] VITALS: BP 146/67; PULSE 77; RESP 25; O2SAT 93
--- NOTE | 2022-05-17 23:47 | PC.NURSE ---
Dr. Castro fraga
--- NOTE | 2022-05-17 23:49 | PC.NURSE ---
speaking with Dr. Erazo
[2022-05-17 23:51] VITALS: BP 150/76; PULSE 72; RESP 25; O2SAT 93
[2022-05-18] VITALS (25 sets, daily range): BP systolic 106–155; BP diastolic 57–82; PULSE 70–79; RESP 12–25; TEMP 36.2–43; O2SAT 90–98; BMI 20.2
--- NOTE | 2022-05-18 00:01 | PC.NURSE ---
speaking with daughter, Taniya
--- NOTE | 2022-05-18 00:24 | PC.NURSE ---
LABS OBTAINED VIA CAR SERVICER. PT TOLERATED WELL. IV SITE FLUSHED. WCM.
[2022-05-18 00:32] LABS: Hematocrit 29.5 % (37.0-47.0); Hemoglobin 9.5 g/dL (12.2-16.2)
--- NOTE | 2022-05-18 00:57 | PC.NURSE ---
speaking with Dr. Erazo
--- NOTE | 2022-05-18 01:48 | PC.NURSE ---
PT COMPLAIN OF PAIN 10/10 TO LEFT HIP. MEDICATIONS ADMINISTERED ORDERED. PT AWARE OF PLAN TO ADMIT. VERBALIZES UNDERSTANDING. WCM.
--- NOTE | 2022-05-18 02:16 | PC.NURSE ---
Updated pt daughter, Taniya, of pt admission
[2022-05-18 03:07] LABS: Microscopic, Urine URINE MICROSCOPIC (MICROSCOPIC)
--- NOTE | 2022-05-18 03:08 | ECG_ITS ---
APPROVED REPORT Exam: Resting ECG HR:72 bpm ECG Measurements Heart Rate 72 AXES MN 135 P 27 QRSd 94 QRS -42 QT 404 T -32 QTc 429 Conclusion ELECTRONIC ATRIAL PACEMAKER LEFT AXIS DEVIATION [QRS AXIS < -30] MODERATE T-WAVE ABNORMALITY, CONSIDER ANTERIOR ISCHEMIA [-0.1+ mV T-WAVE IN V3/V4] ABNORMAL ECG UNCONFIRMED REPORT Electronically signed by : Dayton Palomares MD 05/19/2022 16:25:31
[2022-05-18 03:09] LABS: Appearance,Urine SL CLOUDY (Clear); Bilirubin,Urine Negative (Negative); Blood, Urine TRACE-L (Negative); Color,Urine YELLOW (Yellow); Glucose,Urine (UA) Negative (Negative); Ketones,Urine 1+ (Negative); Leukocyte Esterase,Urine TRACE (Negative); Nitrate,Urine POSITIVE (Negative); Protein,Urine Negative (Negative); Specific Gravity, Urine 1.015 (1.005-1.030); Urobilinogen,Urine 0.2 EU/dl (0.2)
[2022-05-18 03:13] LABS: Bacteria,Urine 4+ /lpf
--- NOTE | 2022-05-18 04:01 | PC.NURSE ---
PT ARRIVED TO FLOOR VIA STRETCHER FROM ED W/STAFF @ [id number]
--- NOTE | 2022-05-18 06:52 | PC.NURSE ---
Patient admitted to floor best of this RN ability. Patient is a poor historian. Obvious deformity noted of the lt hip. Patient medicated for pain per mar. Edouard cath in place. Spoke with patient PEDRO Briscoe (daughter) to confirm DNR status verified with Luz Elena NATARAJAN. DNR paper work is signed and on chart. Patient has been npo r/t ortho consult this am.
--- NOTE | 2022-05-18 08:14 | DIET.NUTRFU ---
RD consulted due to low cecy score, currently patient is NPO awaiting ortho consult will continue to follow for supplement needs as diet is upgraded. IVF in place and labs reviewed.
--- NOTE | 2022-05-18 08:38 | CT_ITS ---
PROCEDURE INFORMATION: Exam: CT Left Lower Extremity Without Contrast; Thigh Exam date and time: 05/18/2022 10:39 AM Age: 86 years old Clinical indication: Other: Femur fracture; Additional info: Femur and pelvic fracture- suspected lytic lesion fracture TECHNIQUE: Imaging protocol: CT of the Left lower extremity without contrast was performed. Exam focused on the thigh. 3D rendering (Not supervised by radiologist): MIP and/or 3D reconstructed images were created by the technologist. Radiation optimization: All CT scans at this facility use at least one of these dose optimization techniques: automated exposure control; mA and/or kV adjustment per patient size (includes targeted exams where dose is matched to clinical indication); or iterative reconstruction. COMPARISON: CR XR FEMUR LT 2V 05/18/2022 10:38 AM FINDINGS: Tubes, catheters and devices: Edouard catheter in the bladder. Bones/joints: There are numerous lytic lesions within the pelvis as well as the proximal left femur. Index lesion involving the left iliac wing measures up to 5 cm. There appear to be remote or healing sacral insufficiency fractures bilaterally. Healing fractures of the left pubic root and left inferior pubic ramus. Acute mildly displaced fracture of the subtrochanteric left femur with an underlying lytic lesion at this location. There is apex anterolateral angulation. A smaller lytic lesion measuring up to 1.8 cm is also seen involving the left femoral neck (series 3, image 39) with involvement of the cortical bone and endosteal scalloping. Soft tissues: Normal. IMPRESSION: 1. Acute mildly displaced pathologic fracture involving the subtrochanteric left femur with apex anterolateral angulation. 2. Numerous additional lytic lesions are seen within the pelvis as well as within the left femoral neck, placing the patient at risk for additional femoral neck pathologic fracture. 3. Healing sacral insufficiency fractures. Healing fractures of the left pubic root and left inferior pubic ramus.
--- NOTE | 2022-05-18 08:39 | CT_ITS ---
PROCEDURE INFORMATION: Exam: CT Pelvis Without Contrast; Skeletal Exam date and time: 05/18/2022 10:32 AM Age: 86 years old Clinical indication: Other: Femur fracture; Additional info: Fracture- femur and pelvis- suspected lytic lesion fracture TECHNIQUE: Imaging protocol: Computed tomography of the pelvis without contrast. Exam focused on the skeleton. Radiation optimization: All CT scans at this facility use at least one of these dose optimization techniques: automated exposure control; mA and/or kV adjustment per patient size (includes targeted exams where dose is matched to clinical indication); or iterative reconstruction. COMPARISON: CR XR HIP LT 2-3V W/PELVIS 05/17/2022 10:11 PM FINDINGS: Urinary bladder: Edouard catheter in the bladder. Reproductive: Hysterectomy. Bones/joints: There are numerous lytic lesions within the pelvis as well as the proximal left femur and partially imaged L4 vertebral body. Index lesion involving the left iliac wing measures up to 5 cm (series 1001, image 46). There appear to be remote or healing sacral insufficiency fractures bilaterally. Healing fractures of the left pubic root and left inferior pubic ramus. Acute mildly displaced fracture of the subtrochanteric left femur with an underlying lytic lesion at this location. There is apex lateral angulation. Intramedullary nail and screw fixation of a healing right subtrochanteric femur fracture. Soft tissues: Unremarkable. Other findings: There is a sterility indeterminate fluid collection over the right greater trochanter measuring up to 7 cm. IMPRESSION: 1. Acute mildly displaced pathologic fracture involving the subtrochanteric left femur with apex lateral angulation. 2. Numerous additional lytic lesions are seen within the pelvis as well as within the partially imaged L4 vertebral body, consistent with metastatic disease versus multiple myeloma. 3. Healing sacral insufficiency fractures. Healing fractures of the left pubic root and left inferior pubic ramus. 4. Postsurgical changes of intramedullary nail and screw fixation of a healing right subtrochanteric femur fracture. There is a sterility indeterminate fluid collection over the right greater trochanter as detailed above.
--- NOTE | 2022-05-18 08:40 | XR_ITS ---
PROCEDURE INFORMATION: Exam: XR Left Femur Exam date and time: 05/18/2022 10:38 AM Age: 86 years old Clinical indication: Difficulty in walking; Additional info: Fracture- femur fracture -- and pelvic fracture-- suspected lytic lesion TECHNIQUE: Imaging protocol: Radiologic exam of the Left femur. Views: 2 views. COMPARISON: CR XR FEMUR LT 2V 02/11/2022 3:24 PM FINDINGS: Bones/joints: Acute mildly displaced fracture of the subtrochanteric left femur with apex lateral angulation. There does appear to be an underlying lytic lesion, consistent with a pathologic fracture. Additional lytic lesion is seen in the left iliac bone. Subacute appearing fracture of the left pubic root. The left hip is located. Osteopenia. Soft tissues: Unremarkable. IMPRESSION: 1. Acute mildly displaced and likely pathologic fracture of the subtrochanteric left femur with apex lateral angulation. 2. Additional lytic lesion is seen in the left iliac bone. 3. Subacute appearing fracture of the left pubic root.
--- NOTE | 2022-05-18 08:59 | HMH.ITSTN ---
called the floor and spoke to Munira advised will get patient at 10am when my help comes in for CT and xrays since I am alone in the ER for the moment
[2022-05-18 09:27] LABS: Basophils # 0.1 K/mm3 (0-0.2); Basophils % 0.7 % (0.1-2.0); Eosinophils # 0.1 K/mm3 (0.0-0.4); Eosinophils % 0.6 % (0.1-12.0); Hematocrit 28.9 % (37.0-47.0); Hemoglobin 9.3 g/dL (12.2-16.2); Lymphocytes # 1.1 K/mm3 (0.7-4.5); Mean Corpuscular HGB Conc 32.2 g/dL (31.8-35.4); Mean Corpuscular Hemoglobin 27.7 pg (27.0-31.2); Mean Corpuscular Volume 85.8 fl (81-99); Mean Platelet Volume 8.5 fl (7.4-10.4); Monocytes # 0.7 K/mm3 (0.1-1.0); Monocytes % 9.5 % (1.7-9.3); Neutrophils # 5.5 K/mm3 (1.8-7.8); Neutrophils % 74.1 % (37.0-80.0); Platelet Count 407 K/mm3 (142-424); Red Blood Count 3.36 M/mm3 (4.20-5.40); Red Cell Distribution Width 17.6 % (11.5-17.5); White Blood Count 7.4 K/mm3 (4.8-10.8)
--- NOTE | 2022-05-18 09:28 | HMH.HP ---
*Admission Date: 05/17/22 *Chief complaint: left hip fracture *History of present illness: Mr. Ramon is an 86-year-old white female with a history of metastatic breast cancer under hospice care and is a resident of [facility]. She has had a significant decline in her condition over the past few weeks. She was transferred from the facility last evening with apparent pathologic fracture of the left hip. It is not clear if she was being transferred or simply positioned in the bed but the staff heard an audible pop and she had immediate pain and noted with deformity of the left hip. She was transported to the ER where x-rays confirmed a left hip fracture. Dr. Seaman attempted transfer to but no beds available. She is admitted at this time for orthopedic consultation. [facility] History Medical History: Reports:: Cancer (metastatic breast cancer), Depression, Gastroesophageal Reflux Disease(GERD), Hypertension, Internal Pacemaker Denies:: Coronary Artery Disease, Diabetes Mellitus Type 1, Diabetes Mellitus Type 2, MRSA *Have you ever received a pneumonia vaccine?: Yes *Have you received a flu vaccine this season?: Yes Laterality Cases: Left: Mastectomy Other Surgeries: Yes: Pacemaker Amputation: No Fractures: Yes - *Social History Smoking Status: Unknown if ever smoked Alcohol Intake: never *Occupational Status:: retired Housing: [employer] *Travel in the last 8 weeks: None - Psychiatric History Pschychiatric History:: Reports:: Depression Family Hx:: Unable to obtain Review of Systems - *Neurologic Denies seizure-like activity Meds Home Medications Medication Instructions Recorded Confirmed Type Bisacodyl [Bisacodyl 10mg Supp] 10 mg RC DAILYP PRN 02/11/22 05/18/22 History Citalopram Hydrobromide 10 mg PO DAILY 02/11/22 05/18/22 History [Citalopram 10mg Tablet] Hydromorphone HCl [Hydromorphone 6 mg PO Q3HP PRN MDD 24mg 02/11/22 05/18/22 History 4mg Tab] Ondansetron [Ondansetron Odt 8mg 8 mg PO Q8HP PRN 02/11/22 05/18/22 History Tab] fentaNYL [fentaNYL 100mcg Patch] 1 patch TD Q72H 02/12/22 05/18/22 History Acetaminophen 650 mg PO Q6HP PRN 02/23/22 05/18/22 History fentaNYL [Fentanyl] 50 mcg TD Q72H 05/18/22 05/18/22 History Allergies Allergy/AdvReac Type Severity Reaction Status Date / Time Sulfa (Sulfonamide Allergy Intermediate Verified 05/18/22 04:23 Antibiotics) [SULFA (SULFONAMIDE ANTIBIOTICS)] erythromycin base Allergy Verified 05/18/22 04:23 Exam Vital signs and Labs for Last 24 Hours: Temp Pulse Resp BP Pulse Ox 98.5 F 78 22 130/69 90 L 05/18/22 07:58 05/18/22 07:58 05/18/22 07:58 05/18/22 07:58 05/18/22 07:58 Laboratory Results - last 24 hr 05/17/22 21:30: WBC 7.7, RBC 3.92 L, Hgb 10.5 L, Hct 34.0 L, MCV 86.7, MCH 26.7 L, MCHC 30.8 L, RDW 17.6 H, Plt Count 523 H, MPV 8.0, Neut % (Auto) 64.3, Lymph % (Auto) 25.1, [place] % (Auto) 7.6, Eos % (Auto) 2.0, Baso % (Auto) 1.0, Neut # (Auto) 4.9, Lymph # (Auto) 1.9, [place] # (Auto) 0.6, Eos # (Auto) 0.2, Baso # (Auto) 0.1, ESR 44 H 05/17/22 21:30: Sodium 137, Potassium 3.8, Chloride 100, Carbon Dioxide 30, Anion Gap 10.8, BUN 11, Creatinine 0.40 L, Estimated Creat Clear 35, Estimated GFR 152, Est GFR ( Amer) 184, Glucose 129 H, Calcium 9.1, Total Bilirubin 0.7, AST 42 H, ALT 16, Alkaline Phosphatase 194 H, C-Reactive Protein 43.5 H, Total Protein 6.1 L, Albumin 3.2 L, Globulin 2.9, Albumin/Globulin Ratio 1.1, Procalcitonin 0.060 05/17/22 22:02: Urine Color Yellow, Urine Appearance Sl cloudy, Urine pH 6.0, Ur Specific [place] 1.015, Urine Protein Negative, Urine Glucose (UA) Negative, Urine Ketones 1+, Urine Blood Trace-l, Urine Nitrate Positive, Urine Bilirubin Negative, Urine Urobilinogen 0.2, Ur Leukocyte Esterase Trace, Urine RBC 5-10, Urine WBC 5-10, Urine Bacteria 4+ 05/17/22 22:14: SARS-CoV-2 (PCR) Not detected, Influenza A Untype (PCR) Not detected, Influenza Type B (PCR) Not detec
[2022-05-18 09:34] LABS: Chloride 106 mmol/L (98-107); Sodium 136 mmol/L (136-145)
[2022-05-18 09:37] LABS: Blood Urea Nitrogen 10 mg/dl (7-17); Carbon Dioxide 24 mmol/L (22.0-30.0); Creatinine Clearance Estimated 35 mL/min (50-200); Estimated Glomerular Filt Rate 211 ml/min (>60); GFR (African American) 256 ML/MIN (>60)
[2022-05-18 09:38] LABS: Calcium 8.4 mg/dl (8.4-10.2); Glucose 120 mg/dl (74-100)
--- NOTE | 2022-05-18 09:43 | ECG_ITS ---
APPROVED REPORT Exam: Resting ECG HR:74 bpm ECG Measurements Heart Rate 74 AXES ME 177 P 201 QRSd 97 QRS -52 QT 401 T -76 QTc 429 Conclusion ELECTRONIC ATRIAL PACEMAKER LEFT ANTERIOR FASCICULAR BLOCK [QRS AXIS <= -45, QR IN I, RS IN II] MODERATE T-WAVE ABNORMALITY, CONSIDER ANTERIOR ISCHEMIA [-0.1+ mV T-WAVE IN V3/V4] MODERATE T-WAVE ABNORMALITY, CONSIDER INFERIOR ISCHEMIA [-0.1+ mV T-WAVE IN II/aVF] ABNORMAL ECG UNCONFIRMED REPORT Electronically signed by : Dayton Palomares MD 05/19/2022 16:25:09
--- NOTE | 2022-05-18 10:35 | PC.WOUNDNOTE ---
left lower extremity Right forearm
--- NOTE | 2022-05-18 12:37 | PC.NURSE ---
1205 - Notified by Dr Erazo to call in surgical team; local operator called and asked to page them [phone] - Pearl Gu and Santana all returned call [phone] - radiology notified of surgery
--- NOTE | 2022-05-18 12:45 | XR_ITS ---
PROCEDURE INFORMATION: Exam: XR Left Femur Exam date and time: 05/18/2022 1:50 PM Age: 86 years old Clinical indication: Screening exam; Femur orif gamma nail case; Additional info: Orif femur fluro time 5.54 TECHNIQUE: Imaging protocol: Radiologic exam of the Left femur. Views: 2 views. COMPARISON: CT FEMUR LT WO CON 05/18/2022 10:39 AM FINDINGS: Bones/joints: Oblique fracture left proximal femur demonstrated. Images obtained prior to ORIF. Soft tissues: Unremarkable. Other findings: Spot radiographs during fluoroscopic evaluation submitted for review. IMPRESSION: Oblique fracture left proximal femur.
--- NOTE | 2022-05-18 12:59 | P.CONPHA_ITS ---
[facility] Pharmacy VTE Monitoring - Patient Demographics Admission date: 05/18/22 Report Date: 05/18/22 Time: 12:59 Allergies/Adverse Reactions: Patient Allergies Sulfa (Sulfonamide Antibiotics) [SULFA (SULFONAMIDE ANTIBIOTICS)] Allergy (Intermediate, Verified 05/18/22 04:23) erythromycin base Allergy (Verified 05/18/22 04:23) Height: 1.63 m Weight: 53.887 kg Patient Problems: Current Active Problems Metastatic breast cancer (Acute) Hypertension (Acute) GERD (gastroesophageal reflux disease) (Acute) Cardiac pacemaker in situ (Acute) Femur fracture, left (Acute) Hospice care (Acute) - VTE Risk Labs: VTE Related Lab Results Hgb 9.3 g/dL (12.2-16.2) L 05/18/22 09:15 Hct 28.9 % (37.0-47.0) L 05/18/22 09:15 Plt Count 407 K/mm3 (142-424) 05/18/22 09:15 BUN 10 mg/dl (7-17) 05/18/22 09:15 Creatinine 0.30 mg/dl (0.52-1.04) L D 05/18/22 09:15 Estimated Creat Clear 35 mL/min (50-200) 05/18/22 09:15 Was VTE Risk Assessment Performed: Yes VTE Score: 5 VTE Risk Level: Low Risk - Prophylaxis VTE Prophylaxis Ordered?: Yes Types of VTE Prophylaxis: TEDS Knee High Location of Applied Device: Bilateral Lower Extremeties
--- NOTE | 2022-05-18 12:59 | HMH.PHAINT ---
MEDICATION RECONCILIATION COMPLETE USING MAR FROM [facility].
[2022-05-18 13:05] LABS: Activated Partial Thrombo Time 30.8 seconds (22.8-30.6); INR 1.06 (0.9-1.1); Prothrombin Time 11.9 seconds (10.1-12.5)
--- NOTE | 2022-05-18 13:22 | HMH.ORTHOCON ---
*Admission Date: 05/18/22 *Reason for consult:: left pathologic subtrochanteric femur fracture *History of present illness: 86-year-old female with known history of metastatic breast cancer, currently on palliative care, was transferring to bed from a chair when she heard and felt a pop, complained of left hip pain and deformity. She was seen at [facility] emergency room where radiographs and subsequent CT scan demonstrated a pathologic subtrochanteric femur fracture with multiple lesions within the pelvis as well. An attempt was made to transfer her to [facility] for further management by the oncology team. On divert and would not accept transfer. Family at bedside did not wish to transfer to [place] or [place] was admitted overnight. She has had significant pain secondary to her fracture for which I was consulted. [facility] History Medical History: Reports:: Cancer (metastatic breast cancer), Depression, Gastroesophageal Reflux Disease(GERD), Hypertension, Internal Pacemaker Denies:: Coronary Artery Disease, Diabetes Mellitus Type 1, Diabetes Mellitus Type 2, MRSA *Have you ever received a pneumonia vaccine?: Yes *Have you received a flu vaccine this season?: Yes Laterality Cases: Left: Mastectomy Other Surgeries: Yes: Pacemaker Amputation: No Fractures: Yes - *Social History Smoking Status: Unknown if ever smoked Alcohol Intake: never *Occupational Status:: retired Housing: longterm Household Members: other *Travel in the last 8 weeks: None - Psychiatric History Pschychiatric History:: Reports:: Depression Family Hx:: Unable to obtain Review of Systems - Constitutional Reports body ache(s), Reports fatigue, Reports lack of energy - ENT Denies abnormal hearing, Denies difficulty swallowing - *Cardiovascular Denies chest pain, Denies chest pain with activity - *Respiratory Denies shortness of breath - *Gastrointestinal Denies abdominal pain, Denies change in bowel habits - *Genitourinary Denies difficulty urinating, Denies pelvic pain - *Musculoskeletal Reports joint pain, Reports limited joint movement, Reports body aches - Integumentary/Breasts Denies lesions - *Neurologic Denies behavioral changes, Denies confusion, Denies seizure-like activity - Psychiatric Denies behavioral changes - Endocrine Denies rapid, pounding, or irregular heartbeat - Hematologic/Lymphatic Denies easy bleeding Meds Home Medications Medication Instructions Recorded Confirmed Type Bisacodyl [Bisacodyl 10mg Supp] 10 mg RC DAILYP PRN 02/11/22 05/18/22 History Citalopram Hydrobromide 10 mg PO DAILY 02/11/22 05/18/22 History [Citalopram 10mg Tablet] Hydromorphone HCl [Hydromorphone 6 mg PO Q3HP PRN MDD 24mg 02/11/22 05/18/22 History 4mg Tab] Ondansetron [Ondansetron Odt 8mg 8 mg PO Q8HP PRN 02/11/22 05/18/22 History Tab] fentaNYL [fentaNYL 100mcg Patch] 1 patch TD Q72H 02/12/22 05/18/22 History Acetaminophen 650 mg PO Q6HP PRN 02/23/22 05/18/22 History Amino Acids/Protein Hydrolys 30 ml PO DAILY 05/18/22 05/18/22 History [Pro-Stat AWC 30mL Liquid Packet] Diclofenac Sodium [Voltaren 1 gm TP TIDP PRN 05/18/22 05/18/22 History Arthritis Pain] Docusate Sodium [Docusate Sodium 100 mg PO TID 05/18/22 05/18/22 History 100mg Cap] Lactulose 20 gm PO BID 05/18/22 05/18/22 History Omeprazole [Omeprazole 20mg 20 mg PO DAILY 05/18/22 05/18/22 History Capsule] fentaNYL [Fentanyl] 1 patch TD Q72H 05/18/22 05/18/22 History Allergies Allergy/AdvReac Type Severity Reaction Status Date / Time Sulfa (Sulfonamide Allergy Intermediate Verified 05/18/22 04:23 Antibiotics) [SULFA (SULFONAMIDE ANTIBIOTICS)] erythromycin base Allergy Verified 05/18/22 04:23 Exam Vital signs and Labs for Last 24 Hours: Temp Pulse Resp BP Pulse Ox 98.5 F 78 22 130/69 90 L 05/18/22 07:58 05/18/22 07:58 05/18/22 07:58 05/18/22 07:58 05/18
--- NOTE | 2022-05-18 14:00 | PC.NURSE ---
INFORMED FAMILY THAT PT HAD LEFT FLOOR TO GO TO OR FOR SURGERY
--- NOTE | 2022-05-18 14:30 | P.PN_ITS ---
[facility] Anesthesia Checklist - Structural Data Admitted From: Inpatient Planned Operative Procedure/s: orif l hip Consent for Planned Operative Procedure(s) Verified: Yes - Airway Assessment C-Spine Mobility Assessed: Yes TMJ Mobility Assessed: Yes Dentition: Good Dentition - Neurological Assessment Level of Consciousness: Awake, Alert, Appropriate - Anesthesia Plan Anesthesia Risk discussed: Yes Anesthesia Plan: Verified ASA Class: III Anesthesia Type: MAC w/Spinal [facility] History I have reviewed the patient's past medical history: Yes Medical History: Reports:: Cancer (metastatic breast cancer), Depression, Gastroesophageal Reflux Disease(GERD), Hypertension, Internal Pacemaker Denies:: Coronary Artery Disease, Diabetes Mellitus Type 1, Diabetes Mellitus Type 2, MRSA *Have you ever received a pneumonia vaccine?: Yes *Have you received a flu vaccine this season?: Yes Anesthesia experience/problems:: none Laterality Cases: Left: Mastectomy Other Surgeries: Yes: Pacemaker Amputation: No Fractures: Yes - *Social History Smoking Status: Unknown if ever smoked Alcohol Intake: never Substance Use Type: denies use *Occupational Status:: retired Housing: long term *Travel in the last 8 weeks: None - Psychiatric History Pschychiatric History:: Reports:: Depression Family Hx:: Unable to obtain
--- NOTE | 2022-05-18 16:03 | XR_ITS ---
PROCEDURE INFORMATION: Exam: XR Left Femur Exam date and time: 05/18/2022 4:21 PM Age: 86 years old Clinical indication: Screening exam; Post op exam; Additional info: S/P left gamma TECHNIQUE: Imaging protocol: Radiologic exam of the Left femur. Views: 2 views. COMPARISON: XA XR HIP LT 2-3V W/PELVIS 05/18/2022 1:50 PM FINDINGS: Bones/joints: Postoperative changes consistent with ORIF. Faintly identified healing fractures involving the left inferior and superior pubic ramus. Soft tissues: Surgical radha in the subcutaneous tissues. IMPRESSION: Postoperative changes consistent with ORIF.
--- NOTE | 2022-05-18 16:13 | P.PN_ITS ---
[facility] Anesthesia Record Part I Intake, IV Amount: 2,000 Estimated blood loss (mL): 100 Urine output (mL): 250 Blood Pressure: 117/82 SaO2: 98 Pulse Rate: 73 Respiratory Rate: 12 Temperature: 97.2 F Patient is:: Awake, Stable Stable to PACU at:: 16:00
--- NOTE | 2022-05-18 16:21 | HMH.OPNOTE ---
Date of procedure: 05/18/22 Pre-op Diagnosis:: Left pathologic subtrochanteric femur fracture Post-op Diagnosis:: same Procedure performed:: 4 5: Cephalomedullary nail fixation left pathologic subtrochanteric femur fracture Surgeon:: Kumar Erazo JR, MD ELECTRIC BLANKET PACKER:: Santana Avendano Anesthesia: MAC, spinal Estimated blood loss (mL): 100 Clinical Note:: 86-year-old female with left pathologic subtrochanteric femur fracture. She is on palliative/hospice care, comfort measures only at her long term. I had a discussion with her and her family regarding further management. She is lucid, in a significant amount of pain. Discussed with her and her family further management including nonoperative treatment, comfort care measures, skeletal versus skin traction, as well as operative fixation. Their main goal is to limit pain with transitioning from bed to chair, and to limit pain with hygiene efforts. I counseled him that the most reliable way to stabilize the fracture and allow her to mobilize from bed to chair would be for operative fixation. Since she is not undergoing any sort of treatment for her metastatic breast cancer, I do not plan to send a specimen for pathology. Plan for long cephalomedullary nail. I discussed her case with Dr. Brian Baez, musculoskeletal oncology with [facility] and he agrees with the plan. Plan for cephalomedullary nail left pathologic subtrochanteric femur fracture. We discussed the risk and benefits of surgery. Risks included but were not limited to pain, bleeding, infection, damage to adjacent structures, nonunion, malunion, need for further surgery, wound healing complications, loss of limb, . Patient expressed verbal consent and written consent was obtained for the above procedure. Operative findings:: Safe intraosseous hardware placement, significantly improved fracture alignment, tip apex distance less than 20 mm, grossly symmetric leg raise. Good overall alignment postoperatively. Operative note:: Patient was identified in preoperative holding. Operative site was marked in indelible ink. History, physical, consent were reviewed and updated. Patient was surrendered to the anesthesia team, taken to the operative suite. Anesthesia was induced. Patient was then placed in the lateral decubitus position on a well-padded operative table. All bony prominences were padded and an axillary roll was placed. The operative extremity was prepped and draped in the usual sterile fashion. The operative team donned sterile gowns and gloves and a timeout was called. All in attendance agreed regarding the patient's identity, procedure, operative site. Weight-based dose of antibiotics was given prior to incision. A stab wound incision was made proximal to the tip of the greater trochanter and a Steinmann pin placed on the tip of the greater trochanter, localizing it on AP and lateral views to be in the center. This was placed down into the femur to the level of the lesser trochanter. The knife was used to enlarge the opening proximally and a guide placed over the pin down to the tip of the greater trochanter. The drill was used through the guide to open the greater trochanter. A ball-tipped guidewire was placed in the canal with aid of an aiming cannula. Initially the wire abutted the anterior cortex so I retracted the wire to just distal to the fracture. I drilled a hole through the lateral cortex, placed the blunt tip of a guidewire into the intramedullary canal. With the aiming cannula and guidewire I was able to advance the guidewire to the center center position. I measured and determined a nail length of 400 mm would be appropriate. I reamed, noted diaphyseal chatter at 12.5 mm, selected a 400 mm gamma nail of 11 mm diameter. The cephalomedullary nail was advanced over the guidewire to appropriate position. The placement was checked on AP and lateral views. The triple sleeve cannula
--- NOTE | 2022-05-18 16:57 | PC.NURSE ---
1616-radiology at bedside 1617-udated pt's daughter/POA via telephone at this time
--- NOTE | 2022-05-18 16:58 | PC.NURSE ---
1631-detailed report called to DELGADO Thomason 1634-pt transported to 2nd floor room 205 via hospital bed per DELGADO Garcia and [facility] and left in care of DELGADO Thomason with bed locked in lowest position, vss, pt stable
--- NOTE | 2022-05-18 18:55 | PC.NURSE ---
pt is A&O to person, surgical repair of femur today, vital signs stable since arrival to floor. 4L NC. Edouard in place. dressing in place to left hip, CDI. medicated for pain X1 with good effectiveness. paged Dr Erazo regarding Tranexamic acid order, have not received page back.
--- NOTE | 2022-05-19 01:00 | PC.NURSE ---
dr agrawal called regarding patient moaning in pain and states its a 10 when asked, pt is alert and oriented to name, place and time, but with mild confusion at times, dr agrawal made aware of pt medication history of fentanyl patch and dilaudid 6mg every 3 hours [facility] related to [facility] cancer. order recieved to change dilaudid dose to 2mg every 3 hours as needed for pain.
[2022-05-19 04:00] VITALS: BP 125/66; PULSE 81; RESP 17; TEMP 37.7; O2SAT 97
--- NOTE | 2022-05-19 04:00 | PC.NURSE ---
pt with pain through the night, pt moaning and grabing left leg and when asked pt states pain and rated it 10, it was not time for another dose of dilaudid and dr agrawal called, see note to increase dilaudid to 2mg, pt alert and oriented to place, name, and year, but mild dementia noted at times, f/c to bsd with clear yellow urine noted, dressing to left hip CDI, pt with low grade temp through the night, o2 at 4L with 02 sats 95%; lung sounds diminished, no other issues or concerns at this time.
[2022-05-19 04:53] VITALS: BMI 20.5
[2022-05-19 08:00] VITALS: BP 127/62; PULSE 82; RESP 18; TEMP 37.2; O2SAT 91
--- NOTE | 2022-05-19 08:30 | HMH.ORTHPN ---
Subjective Date: 05/19/22 Time: 08:30 Interval history: She had some pain overnight but her Dilaudid dose was less than what she [facility] for generalized pain. Once the dose was adjusted she was much more comfortable. She says her hip is more comfortable than preop. Otherwise no complaints. PN: Obj Ex Vital signs: Temp Pulse Resp BP Pulse Ox 99.9 F H 81 17 125/66 97 05/19/22 04:00 05/19/22 04:00 05/19/22 04:00 05/19/22 04:00 05/19/22 04:00 - Constitutional no acute distress - Routine HEENT Exam Head: Present: normocephalic, atraumatic Eye: Present: EOMI ENT: Present: mucous membranes moist - Routine Neck Exam Present: supple - Routine Respiratory Exam Absent: respiratory distress - Routine Cardiovascular Exam Present: RRR - Routine Abdominal Exam Present: soft. Absent: distended - Detailed Lower Extremity Exam Hip: Left wound hip (Left lower extremity dressing clean, dry, intact. Leg lengths grossly symmetric, no apparent malrotation. Distally neurovascularly intact.) - Urinary Catheter Management Edouard Cath placed during this visit: no Progress Note: A&P (1) Femur fracture, left Status: Acute (2) Metastatic breast cancer Status: Acute (3) GERD (gastroesophageal reflux disease) Status: Acute (4) Hypertension Status: Acute (5) Cardiac pacemaker in situ Status: Acute (6) Hospice care Status: Acute Assessment and Plan for All Diagnoses:: 86-year-old female status post cephalomedullary nail fixation left subtrochanteric pathologic femur fracture May 18, 2022. Toe-touch weightbearing for transfers only left lower extremity. She is nonambulatory at baseline, mainly transfers from bed to chair. PT/OT. 23 hours antibiotics. DVT prophylaxis, Lovenox 30 mg twice daily x6 weeks. Plan for 2-week follow-up for wound check and x-rays. Will follow.
--- NOTE | 2022-05-19 09:12 | P.PN_ITS ---
Internal Medicine - PN: Subj *Date: 05/19/22 *Time: 09:15 Interval history: POD#1 Left hip fracture successfully repaired with by IMN fixation Dr. Erazo. Patient states her pain is better today. Exam Vital signs and Labs for Last 24 Hours: Temp Pulse Resp BP Pulse Ox 98.9 F 82 18 127/62 91 L 05/19/22 08:00 05/19/22 08:00 05/19/22 08:00 05/19/22 08:00 05/19/22 08:00 Laboratory Results - last 24 hr 05/17/22 22:02: Urine Color Yellow, Urine Appearance Sl cloudy, Urine pH 6.0, Ur Specific [place] 1.015, Urine Protein Negative, Urine Glucose (UA) Negative, Urine Ketones 1+, Urine Blood Trace-l, Urine Nitrate Positive, Urine Bilirubin Negative, Urine Urobilinogen 0.2, Ur Leukocyte Esterase Trace, Urine RBC 5-10, Urine WBC 5-10, Urine Bacteria 4+ 05/18/22 09:15: WBC 7.4, RBC 3.36 L, Hgb 9.3 L, Hct 28.9 L, MCV 85.8, MCH 27.7, MCHC 32.2, RDW 17.6 H, Plt Count 407, MPV 8.5, Neut % (Auto) 74.1, Lymph % (Auto) 15.0, [place] % (Auto) 9.5 H, Eos % (Auto) 0.6, Baso % (Auto) 0.7, Neut # (Auto) 5.5, Lymph # (Auto) 1.1, [place] # (Auto) 0.7, Eos # (Auto) 0.1, Baso # (Auto) 0.1 05/18/22 09:15: Sodium 136, Potassium 5.0 D, Chloride 106, Carbon Dioxide 24, Anion Gap 11.0, BUN 10, Creatinine 0.30 L D, Estimated Creat Clear 35, Estimated GFR 211, Est GFR ( Amer) 256 D, Glucose 120 H, Calcium 8.4 05/18/22 12:30: Blood Type Confirm A Positive 05/18/22 12:50: PT 11.9, INR 1.06, APTT 30.8 H 05/18/22 12:50: Blood Type A Positive, Antibody Screen Negative, Crossmatch (AHG) See Detail I & O for Last 24 hours: Intake & Output 05/16/22 05/17/22 05/18/22 05/19/22 11:59 11:59 11:59 11:59 Intake Total 1500 / 1500 3029 / 3029 Output Total 1200 / 1200 675 / 675 Balance 300 / 300 2354 / 2354 Weight 118 lb 12.8 oz 120 lb Microbiology Reports for the Last 24 Hours: Microbiology 05/17/22 22:02 Urine,Catheterized Urine Culture - Preliminary Gram Positive Cocci Narrative: Awake and alert. Color is pale. Lungs are clear anteriorly. Heart is regular. Abdomen soft and nondistended. Lower extremities with no edema. Dressing dry and intact on the left leg Assessment and Plan (1) Femur fracture, left Status: Acute Qualifiers: Encounter type: initial encounter Femur location: subtrochanteric Fracture type: closed Fracture alignment: displaced Qualified Code(s): S72.22XA - Displaced subtrochanteric fracture of left femur, initial encounter for closed fracture Category: Medical Code(s): S72.92XA - Unspecified fracture of left femur, initial encounter for closed fracture (2) Metastatic breast cancer Status: Acute Category: Medical Code(s): C50.919 - Malignant neoplasm of unspecified site of unspecified female breast (3) GERD (gastroesophageal reflux disease) Status: Acute Category: Medical Code(s): K21.9 - Gastro-esophageal reflux disease without esophagitis (4) Hypertension Status: Acute Category: Medical Code(s): I10 - Essential (primary) hypertension (5) Cardiac pacemaker in situ Status: Acute Category: Medical Code(s): Z95.0 - Presence of cardiac pacemaker (6) Hospice care Status: Acute Category: Medical Code(s): Z51.5 - Encounter for palliative care - Assessment and plan all Dx Assessment and Plan for all problems:: Stable postop. [place] [facility] [place]
[2022-05-19 11:24] VITALS: BP 122/59; PULSE 80; RESP 18; TEMP 37.3; O2SAT 100
--- NOTE | 2022-05-19 11:24 | PC.NURSE ---
Addendum entered by MIRIAM Mendoza 05/19/22 11:26: Ice water filled at this time. Original Note: Rounded on pt, cleaned and straightened room. Pt turned on right side at this time. No needs voiced.
[2022-05-19 15:22] LABS: Basophils % 0.4 % (0.1-2.0); Eosinophils # 0.1 K/mm3 (0.0-0.4); Eosinophils % 0.9 % (0.1-12.0); Hematocrit 26.5 % (37.0-47.0); Hemoglobin 8.5 g/dL (12.2-16.2); Lymphocytes # 1.2 K/mm3 (0.7-4.5); Lymphocytes % 12.8 % (10-50); Mean Corpuscular Hemoglobin 27.1 pg (27.0-31.2); Mean Corpuscular Volume 84.8 fl (81-99); Mean Platelet Volume 7.2 fl (7.4-10.4); Monocytes # 0.6 K/mm3 (0.1-1.0); Monocytes % 6.4 % (1.7-9.3); Neutrophils # 7.1 K/mm3 (1.8-7.8); Neutrophils % 79.5 % (37.0-80.0); Platelet Count 400 K/mm3 (142-424); Red Blood Count 3.12 M/mm3 (4.20-5.40); Red Cell Distribution Width 16.4 % (11.5-17.5); White Blood Count 8.9 K/mm3 (4.8-10.8)
[2022-05-19 15:39] LABS: Anion Gap 10.3 mEq/L (5-15); Blood Urea Nitrogen 12 mg/dl (7-17); Calcium 8.5 mg/dl (8.4-10.2); Carbon Dioxide 27 mmol/L (22.0-30.0); Chloride 100 mmol/L (98-107); Creatinine Clearance Estimated 35 mL/min (50-200); Estimated Glomerular Filt Rate 152 ml/min (>60); GFR (African American) 184 ML/MIN (>60); Glucose 139 mg/dl (74-100); Potassium 3.3 mmoL/L (3.5-5.1); Sodium 134 mmol/L (136-145)
--- NOTE | 2022-05-19 15:50 | HMH.PTEV ---
Physical Therapy Evaluation Rehab PT IP Evaluation Start: 05/18/22 15:58 Freq: ONCE Status: Active Protocol: Document 05/19/22 15:00 IFRAH (Rec: 05/19/22 15:49 PWRENETTA [id number]) Subjective/History History History This is the initial IP PT evaluation for Rocio Ramon. Pt is an 86 y/o female admitted to [facility] after suffering idiopathic femur fracture. Pt is in hospice/palliative care at [facility] due to metastatic breast cancer. Pt is non-ambualtory at baseline and requires jose alfredo to transfer to bedside commode and chair. Pt has bone mets and as she was being transferred to bedside commode at [facility] , nsg heard a pop and pt screamed in pain. Previous notes state pt had visible leg deformity. Pt was admitted to [facility] and underwent successful IM nathan fixation of R femur. Pt is to be TDWB on RLE w/ transfers Subjective Subjective Pt c/o severe pain and yelled and whimpered w/ bed mobility and supine/sit transfer Pt is to be TDWB on transfers Rehab PT IP Eval Objective Appearance Patient Behavior Fatigued,Guarded,Fearful Patient Orientation Place,Name,Birthday,Year Difficulty following instructions mild Speech Pattern Appropriate,Delayed Ambulation Patient Able to Ambulate No Balance Ability to Arise Unable Sitting Balance Leans or slides in chair Dynamic Sitting Balance Ability Poor Dynamic Standing Balance Ability Zero Transfers Bed Transfer Ability Total/Dependent (100%) Rehab PT IP prob,goals,plan Problems Date of Evaluation: 05/19/22 PT IP Problems Bed Mobility,Transfers Rehab Potential Rehab Potential Poor Plan PT Intervention Plan Bed Mobility,Transfers Discharge Goals Bed Transfer Ability Total/Dependent (100%) Sit to Stand Chair Transfer Ability Total/Dependent (100%) Discharge Plan PT Discharge Plan Pt will benefit most from return to palliative/hospice care at - Therapist feels pt tolera
[2022-05-19 15:57] VITALS: BP 134/73; PULSE 84; RESP 18; TEMP 36.9; O2SAT 90
--- NOTE | 2022-05-19 17:59 | PC.NURSE ---
pt alert and oriented with some episodes of confusion. turned and repositioned q2hr. pain reported, relieved briefly by medication. nausea reported relieved by medication. dressing covering surgical site on left leg, CDI.
[2022-05-19 20:00] VITALS: BP 110/58; PULSE 83; RESP 18; TEMP 37.8; O2SAT 90
--- NOTE | 2022-05-19 21:00 | PC.NURSE ---
attempted to give pt po meds and was noted that pt was nauseas and vomited small amount after first med given, did not attempt rest of meds due to nausea and vomiting.
[2022-05-20] VITALS: BP 100/53; PULSE 80; RESP 15; TEMP 37.2; O2SAT 91
[2022-05-20 04:00] VITALS: BP 102/63; PULSE 90; RESP 18; TEMP 36.4; O2SAT 91
[2022-05-20 05:00] VITALS: BMI 20.5
--- NOTE | 2022-05-20 05:00 | PC.NURSE ---
pt rested well through the night, pt medicated x1 for pain, dressing to left hip incision area CDI, +pedal pulses noted to LLE, pt is alert and oriented with mild confusion at times, pt was noted picking at tape trying to take it off, 02 at 4L pnc, pt has been taking 02 off at times, sats remain 91-96, lung sounds diminished, f/c to bsd with clear yellow urine noted, skin fragile, no other issues or concerns at this time. VSS, mild low grade temp at times.
--- NOTE | 2022-05-20 07:57 | HMH.ORTHPN ---
Subjective Date: 05/20/22 Time: 07:57 Interval history: Pain tolerable overnight. No complaints. PN: Obj Ex Vital signs: Temp Pulse Resp BP Pulse Ox 97.5 F L 90 18 102/63 L 91 L 05/20/22 04:00 05/20/22 04:00 05/20/22 04:00 05/20/22 04:00 05/20/22 04:00 - Constitutional no acute distress - Routine HEENT Exam Head: Present: normocephalic, atraumatic Eye: Present: EOMI - Routine Respiratory Exam Absent: respiratory distress - Routine Cardiovascular Exam Present: RRR - Routine Abdominal Exam Present: soft. Absent: distended - Detailed Lower Extremity Exam Hip: Left wound hip (LLE dressing c/d/i. Palpable DP/PT, 2+ EHL/FHL/TA/GS, SILT DP/SP/T/Nelson/Sa.) - Urinary Catheter Management Edouard Cath placed during this visit: no Progress Note: A&P (1) Femur fracture, left Status: Acute (2) Metastatic breast cancer Status: Acute (3) GERD (gastroesophageal reflux disease) Status: Acute (4) Hypertension Status: Acute (5) Cardiac pacemaker in situ Status: Acute (6) Hospice care Status: Acute Assessment and Plan for All Diagnoses:: 86-year-old female status post cephalomedullary nail fixation left subtrochanteric pathologic femur fracture May 18, 2022. Toe-touch weightbearing for transfers only left lower extremity. She is nonambulatory at baseline, mainly transfers from bed to chair. PT/OT. DVT prophylaxis, Lovenox 30 mg twice daily x6 weeks. Plan for 2-week follow-up for wound check and x-rays. Will follow.
[2022-05-20 08:00] VITALS: BP 112/51; PULSE 79; RESP 16; TEMP 37.3; O2SAT 94
[2022-05-20 08:23] LABS: Basophils % 0.4 % (0.1-2.0); Eosinophils # 0.2 K/mm3 (0.0-0.4); Eosinophils % 2.8 % (0.1-12.0); Hematocrit 23.3 % (37.0-47.0); Hemoglobin 7.7 g/dL (12.2-16.2); Lymphocytes # 1.2 K/mm3 (0.7-4.5); Lymphocytes % 17.9 % (10-50); Mean Corpuscular HGB Conc 32.9 g/dL (31.8-35.4); Mean Corpuscular Hemoglobin 27.2 pg (27.0-31.2); Mean Corpuscular Volume 82.6 fl (81-99); Mean Platelet Volume 7.7 fl (7.4-10.4); Monocytes # 0.6 K/mm3 (0.1-1.0); Monocytes % 9.1 % (1.7-9.3); Neutrophils # 4.7 K/mm3 (1.8-7.8); Neutrophils % 69.8 % (37.0-80.0); Platelet Count 343 K/mm3 (142-424); Red Blood Count 2.82 M/mm3 (4.20-5.40); Red Cell Distribution Width 16.5 % (11.5-17.5); White Blood Count 6.8 K/mm3 (4.8-10.8)
[2022-05-20 08:53] LABS: Anion Gap 6.7 mEq/L (5-15); Blood Urea Nitrogen 17 mg/dl (7-17); Calcium 8.5 mg/dl (8.4-10.2); Carbon Dioxide 26 mmol/L (22.0-30.0); Chloride 103 mmol/L (98-107); Creatinine Clearance Estimated 35 mL/min (50-200); Estimated Glomerular Filt Rate 152 ml/min (>60); GFR (African American) 184 ML/MIN (>60); Glucose 103 mg/dl (74-100); Potassium 3.7 mmoL/L (3.5-5.1); Sodium 132 mmol/L (136-145)
--- NOTE | 2022-05-20 09:08 | HMH.ACPN2 ---
<Lana Lara - Last Filed: 05/20/22 09:08> Internal Medicine - PN: Subj *Date: 05/20/22 *Time: 09:08 Interval history: Patient says no to chest pain and shortness of breath. According to nursing notes she Rested well through the night. She was medicated for pain.Seem to be alert and oriented with mild confusion at times. Pain on oxygen at 4 L per nasal cannula. Exam Vital signs and Labs for Last 24 Hours: Temp Pulse Resp BP Pulse Ox 99.2 F 79 16 112/51 L 94 L 05/20/22 08:00 05/20/22 08:00 05/20/22 08:00 05/20/22 08:00 05/20/22 08:00 Laboratory Results - last 24 hr 05/19/22 14:10: WBC 8.9, RBC 3.12 L, Hgb 8.5 L, Hct 26.5 L, MCV 84.8, MCH 27.1, MCHC 32.0, RDW 16.4, Plt Count 400, MPV 7.2 L, Neut % (Auto) 79.5, Lymph % (Auto) 12.8, [place] % (Auto) 6.4, Eos % (Auto) 0.9, Baso % (Auto) 0.4, Neut # (Auto) 7.1, Lymph # (Auto) 1.2, [place] # (Auto) 0.6, Eos # (Auto) 0.1, Baso # (Auto) 0.0 05/19/22 14:10: Sodium 134 L, Potassium 3.3 L D, Chloride 100, Carbon Dioxide 27, Anion Gap 10.3, BUN 12, Creatinine 0.40 L D, Estimated Creat Clear 35, Estimated GFR 152, Est GFR ( Amer) 184 D, Glucose 139 H, Calcium 8.5 05/20/22 08:15: WBC 6.8, RBC 2.82 L, Hgb 7.7 L, Hct 23.3 L, MCV 82.6, MCH 27.2, MCHC 32.9, RDW 16.5, Plt Count 343, MPV 7.7, Neut % (Auto) 69.8, Lymph % (Auto) 17.9, [place] % (Auto) 9.1, Eos % (Auto) 2.8, Baso % (Auto) 0.4, Neut # (Auto) 4.7, Lymph # (Auto) 1.2, [place] # (Auto) 0.6, Eos # (Auto) 0.2, Baso # (Auto) 0.0 05/20/22 08:15: Sodium 132 L, Potassium 3.7, Chloride 103, Carbon Dioxide 26, Anion Gap 6.7, BUN 17 D, Creatinine 0.40 L, Estimated Creat Clear 35, Estimated GFR 152, Est GFR ( Amer) 184, Glucose 103 H D, Calcium 8.5 I & O for Last 24 hours: Intake & Output 05/17/22 05/18/22 05/19/22 05/20/22 11:59 11:59 11:59 11:59 Intake Total 1500 / 1500 3029 / 3029 1884 / 1884 Output Total 1200 / 1200 675 / 675 1000 / 1000 Balance 300 / 300 2354 / 2354 884 / 884 Weight 118 lb 12.8 oz 120 lb 119 lb 15.997 oz Microbiology Reports for the Last 24 Hours: Microbiology 05/17/22 22:02 Urine,Catheterized Urine Culture - Preliminary Enterococcus faecium (grp d) - Constitutional no acute distress Comments: Sleeps mostly through exam.Does say yes and no - *Routine Respiratory Exam Present: CTA bilaterally - *Routine Cardiovascular Exam Present: RRR - *Routine Abdominal Exam Present: soft, normoactive bowel sounds. Absent: tenderness - *Routine Extremities Exam Comments: Left hip dressing clean, dry, and intact. - *Routine Neurological Exam Present: alert Assessment and Plan (1) Femur fracture, left Status: Acute Qualifiers: Encounter type: initial encounter Femur location: subtrochanteric Fracture type: closed Fracture alignment: displaced Qualified Code(s): S72.22XA - Displaced subtrochanteric fracture of left femur, initial encounter for closed fracture Category: Medical Code(s): S72.92XA - Unspecified fracture of left femur, initial encounter for closed fracture (2) Metastatic breast cancer Status: Acute Category: Medical Code(s): C50.919 - Malignant neoplasm of unspecified site of unspecified female breast (3) GERD (gastroesophageal reflux disease) Status: Acute Category: Medical Code(s): K21.9 - Gastro-esophageal reflux disease without esophagitis (4) Hypertension Status: Acute Category: Medical Code(s): I10 - Essential (primary) hypertension (5) Cardiac pacemaker in situ Status: Acute Category: Medical Code(s): Z95.0 - Presence of cardiac pacemaker (6) Hospice care Status: Acute Category: Medical Code(s): Z51.5 - Encounter for palliative care - Assessment and plan all Dx Assessment and Plan for all problems:: Patient will return to [place]. She will remain under hospice care. Medications as per medication reconciliation sheet. <Julio Cabrales - Last Filed: 0
[2022-05-20 09:10] VITALS: BP 113/61; PULSE 74; TEMP 36.3
--- NOTE | 2022-05-20 09:10 | P.PN_ITS ---
[facility] Anesthesia Record Part II Discharge Time: 16:30 Destination: floor PACU nurse assessment reviewed?: Yes Patient Condition:: Good Anesthesia Complications:: None Swallowing reflex intact?: Yes Cyanosis?: No Blood Pressure: 113/61 Pulse Rate: 74 Temperature: 97.4 F Mental Status: Alert & Oriented Pain level:: 0 Nausea and/or vomitting:: None Intake, IV Amount: 2,000
--- NOTE | 2022-05-20 09:11 | HMH.DCSUM ---
General - General Admission date:: 05/18/22 <Julio Cabrales - 05/21/22 22:41> 05/18/22 <Lana Lara - 05/20/22 09:31> Discharge date: 05/20/22 <Lana Lara - 05/20/22 09:31> HPI HPI: Mr. Ramon is an 86-year-old white female with a history of metastatic breast cancer under hospice care and is a resident of [facility]. She had a significant decline in her condition over the previous few weeks. She was transferred from the facility last evening with apparent pathologic fracture of the left hip. It was not clear if she was being transferred or simply positioned in the bed but the staff heard an audible pop and she had immediate pain and noted with deformity of the left hip. She was transported to the ER where x-rays confirmed a left hip fracture. Dr. Seaman attempted transfer to but no beds available. She was admitted with an orthopedic consultation. <Lana Lara - 05/20/22 09:31> Hospital Course Hospital Course: Patient was seen by Dr. Erazo , orthopedic Surgeon who on05/18/2022 performed cephalomedullary nail fixation for a left pathological subtrochanteric femur fracture.she did tolerate the surgery satisfactory and the following day she was noted to have had some pain. Dilaudid dose was Adjusted. Patient noted that the hip was more comfortable than before surgery.She remained stable with pain controlled. On 05/20/2022 she was felt to be stable to be transferred back to [place] for ongoing care with hospice in attendance. Patient urinalysis with culture showed Enterococcusfaecium with colony count greater than 100,000 and will be started on amoxicillin twice daily. Other meds as per medication reconciliation sheet. Patient was seen by Dr. Erazo who noted toe touchWeightbearing for transfers only on the left lower extremity.She is to receive DVT prophylaxis Lovenox 30 mg twice daily for 6 weeks. Noted also that she is nonambulatory at baseline but transfers from the bed to the chair with assistance sometimes requiring lifting. <Lana Lara - 05/20/22 09:31> Objective Vital signs: Temp Pulse Resp BP Pulse Ox 97.4 F L 74 16 113/61 94 L 05/20/22 09:10 05/20/22 09:10 05/20/22 08:00 05/20/22 09:10 05/20/22 08:00 <Julio Cabrales - 05/21/22 22:41> Temp Pulse Resp BP Pulse Ox 97.4 F L 74 16 113/61 94 L 05/20/22 09:10 05/20/22 09:10 05/20/22 08:00 05/20/22 09:10 05/20/22 08:00 <Lana Lara - 05/20/22 09:31> Narrative: Exam Vital signs and Labs for Last 24 Hours: Temp Pulse Resp BP Pulse Ox 99.2 F 79 16 112/51 L 94 L 05/20/22 08:00 05/20/22 08:00 05/20/22 08:00 05/20/22 08:00 05/20/22 08:00 Laboratory Results - last 24 hr 05/19/22 14:10: WBC 8.9, RBC 3.12 L, Hgb 8.5 L, Hct 26.5 L, MCV 84.8, MCH 27.1, MCHC 32.0, RDW 16.4, Plt Count 400, MPV 7.2 L, Neut % (Auto) 79.5, Lymph % (Auto) 12.8, [place] % (Auto) 6.4, Eos % (Auto) 0.9, Baso % (Auto) 0.4, Neut # (Auto) 7.1, Lymph # (Auto) 1.2, [place] # (Auto) 0.6, Eos # (Auto) 0.1, Baso # (Auto) 0.0 05/19/22 14:10: Sodium 134 L, Potassium 3.3 L D, Chloride 100, Carbon Dioxide 27, Anion Gap 10.3, BUN 12, Creatinine 0.40 L D, Estimated Creat Clear 35, Estimated GFR 152, Est GFR ( Amer) 184 D, Glucose 139 H, Calcium 8.5 05/20/22 08:15: WBC 6.8, RBC 2.82 L, Hgb 7.7 L, Hct 23.3 L, MCV 82.6, MCH 27.2, MCHC 32.9, RDW 16.5, Plt Count 343, MPV 7.7, Neut % (Auto) 69.8, Lymph % (Auto) 17.9, [place] % (Auto) 9.1, Eos % (Auto) 2.8, Baso % (Auto) 0.4, Neut # (Auto) 4.7, Lymph # (Auto) 1.2, [place] # (Auto) 0.6, Eos # (Auto) 0.2, Baso # (Auto) 0.0 05/20/22 08:15: Sodium 132 L, Potassium 3.7, Chloride 103, Carbon Dioxide 26, Anion Gap 6.7, BUN 17 D, Creatinine 0.40 L, Estimated Creat Clear 35, Estimated GFR 152, Est GFR ( Amer) 184, Glucose 103 H D, Calcium 8.5 I & O for Last 24 hours: Intake & Output 05/17/22 05/18/22 05/19/22 05/20/22 11:59 11:59 11:59 11:
--- NOTE | 2022-05-20 10:18 | SW/DCPLANNER ---
This patient currently resides at [facility] under Hospice Care. The plan for this patient is to return to [facility] today and resume Hospice care w/ [facility]. I have faxed updated patient information to [facility] and [facility]. Patient will require a COVID swab prior to returning.
[2022-05-20 10:19] LABS: Coronavirus 19, PCR Not Detected (NotDetected); Influenza A, PCR Not Detected (NotDetected); Influenza B, PCR Not Detected (NotDetected)
[2022-05-20 10:35] VITALS: BMI 20.3
--- NOTE | 2022-05-20 11:24 | PC.NURSE ---
PT IS RESTING IN BED. ATTEMPTED TO GIVE PT HER PO MEDICATIONS 3 DIFFERENT TIMES THIS MORNING AND PT REFUSED. PT DID NOT WANT ANY BREAKFAST THIS MORNING AND WAS OFFERED ENSURE AND REFUSED. DRESSING NOTE DOT YAHAIRA LEFT HISP
--- NOTE | 2022-05-20 11:26 | PC.NURSE ---
PT IS RESTING IN BED. ATTEMPTED 3 DIFFERENT TIMES THIS MORNING TO GIVE PT PO MEDS AND SHE REFUSED. PT REFUSED BREAKFAST AND WAS OFFERED ENSURE AND REFUSED. PT WILL ANSWER SIMPLE YES OR NO QUESTIONS. ALERT TO SELF ONLY. TURNED AND REPOSITIONED THIS MORNING. PT HAS BUE/BLE EDEMA NOTED. DRESSING TO THE LEFT HIP C/D/I. DRESSINGS NOTED TO ABRASIONS ON THE BLE/BUE. CATHETER REMOVED AT 1115. REPORT CALLED TO [facility]. AMBULANCE CALLED FOR TRANSPORT.
--- NOTE | 2022-05-21 14:41 | CARE MANAGER ---
Spoke with nurse at [place]. State that patient is stable. Denies any questions or concerns. DELGADO Campos
== END 2022-05-20 13:57 | DRG 481 ==
LOC: ER 22:29 → 2ND 05-18 03:25
PROVIDERS: Orthopaedic Surgery; Admitting Provider Family Medicine; Emergency Provider Emergency Medicine; PCP Family Medicine; Visit Provider Family Medicine
PROC: 0QHC06Z Insertion of Intramedullary Internal Fixation Device into Left Lower Femur, Open Approach (ICD-10-PCS; principal; 2022-05-18 13:00)
DX: M84.452A Pathological fracture, left femur, initial encounter for fracture (principal); C79.9 Secondary malignant neoplasm of unspecified site; G89.3 Neoplasm related pain (acute) (chronic); Z51.5 Encounter for palliative care; I10 Essential (primary) hypertension; Z95.0 Presence of cardiac pacemaker; K21.9 Gastro-esophageal reflux disease without esophagitis
CPT/HCPCS: 27245; 36415; 51702; 71045; 72192; 73502; 73552; 73700; 76000; 80048; 80053; 81001; 84145; 85014; 85018; 85025; 85610; 85651; 85730; 86140; 86850; 87086; 87088; 87186; 93005; 97163; 99285; C1713; C1769; C1776; C9803; J2405; J2704; U0003; U0005